=== PATIENT | female | born 1940 | race Caucasian/White ===

== ENCOUNTER 2017-02-18 16:41 | Inpatient (IN) ==
--- NOTE | 2017-02-18 17:19 | Emergency Department Note ---
Disposition Clinical Impression: Atrial fibrillation Qualifiers: Atrial fibrillation type: paroxysmal Qualified Code(s): I48.0 - Paroxysmal atrial fibrillation Disposition: Admitted As Inpatient Condition: Good Referrals: Danya Houser CNP [Primary Care Provider] - Time of Disposition: 20:47 General Adult HPI - General Stated complaint: irregular heart beat Time Seen by Provider: 02/18/17 16:50 Nursing Notes Reviewed: Yes Vital Signs Reviewed: Yes - History of Present Illness HPI Narrative: 1 week history of feeling like her heart is out of rhythm. Denies any shortness of breath or chest pain. No other symptoms. Onset (ago): day(s) Radiation: non-radiation Pain Severity: moderate Pain Scale: 0 Consistency: constant Improves with: nothing Worsens with: nothing Associated symptoms: Reports: shortness of breath - Related Data Home Medications Medication Instructions Recorded Confirmed Amlodipine Besylate 10 mg PO DAILY 03/17/16 02/18/17 Carvedilol [Coreg] 25 mg PO BID 03/17/16 02/18/17 Ergocalciferol (VITAMIN D2) 50,000 unit PO FR 03/17/16 02/18/17 [Vitamin D2 (50,000 UNIT)] Meclizine [Antivert] 12.5 mg PO DAILY PRN 03/17/16 02/18/17 Omeprazole [PriLOSEC] 20 mg PO DAILY 03/17/16 02/18/17 Albuterol Sulfate [Albuterol 2 puff IH Q4H PRN 04/18/16 02/18/17 Inhaler] Aspirin 81 mg PO DAILY 04/18/16 02/18/17 Calcitriol [Rocaltrol] 0.25 mcg PO DAILY 04/30/16 02/18/17 Warfarin [Coumadin] 5 mg PO ANNE 04/30/16 02/18/17 Diltiazem HCl [Diltiazem 24Hr Cd] 240 mg PO DAILY 02/18/17 02/18/17 Furosemide [Lasix] 20 mg PO DAILY 02/18/17 02/18/17 Lisinopril [Zestril] 40 mg PO DAILY 02/18/17 02/18/17 Tramadol HCl [Ultram] 50 mg PO Q8H PRN 02/18/17 02/18/17 Warfarin [Coumadin] 2.5 mg PO MOTUWETHFRSA 02/18/17 02/18/17 Previous Rx's Medication Instructions Recorded Magnesium Oxide [Magnesium] 400 mg PO BID #60 tablet 09/15/16 Allergies Allergy/AdvReac Type Severity Reaction Status Date / Time No Known Allergies Allergy Verified 08/15/16 12:03 All systems ED: reviewed and negative except as stated. Constitutional: Denies: fever, chills ENT ED: Denies: congestion Cardiovascular: Reports: palpitations (for 1 week). Denies: chest pain, syncope Respiratory: Reports: cough (for 1 year), sputum production (yellow). Denies: dyspnea Gastrointestinal: Denies: abdominal pain, nausea, vomiting, diarrhea Genitourinary: Denies: urgency, dysuria, frequency, hematuria Musculoskeletal: Denies: back pain Neurological: Denies: headache Past Medical History - Past Medical History Attestation: Yes The following information was validated with the patient. Medical history: Reports: COPD, GERD, hypertension, myocardial infarction, renal disease, TIA Psychiatric history: Reports: no psych history - Social History Smoking Status: Never smoker Smokeless Tobacco Status: No Alcohol use: Reports: none Drug use: Reports: none Physical Exam - General Limitations: no limitations General appearance: alert, in no apparent distress - Head Head exam: atraumatic, normocephalic, normal inspection - Eye Eye exam: Present: normal appearance, PERRL, EOMI. Absent: scleral icterus - ENT ENT exam: normal exam, normal oropharynx, mucous membranes moist - Neck Neck exam: Present: normal inspection, full ROM - Chest Chest inspection: Present: normal inspection - Respiratory Respiratory exam: Present: normal lung sounds bilaterally. Absent: respiratory distress - Cardiovascular Cardiovascular exam: Present: tachycardia, irregular rhythm, normal heart sounds - Abdominal Exam Abdominal exam: Present: soft, Non-Tender, normal bowel sounds. Absent: Palmer' s sign, Rovsing's sign, tenderness at McBurney's Point - Extremities Exam Extremities exam: Present: normal inspection, full ROM, normal capillary refill. Absent: pedal edema - Back Exam Back exam: Present: normal inspection. Absent: CVA tenderness (R), CVA tenderness (L) - Neurological Exam Neurological exam: Present: alert, oriented X3 - Psychiatric Psychiatric exam: Present: normal affect, normal mood - Skin Skin exam: Present: warm, dry, intact, normal color. Absent: rash, cyanosis Course Course Narrative: Well-appearing female patient presenting to emergency department complaining of feeling like her heart is beating out of rhythm. She does have a history of atrial fibrillation that was converted approximately a month ago while she was in the hospital. She is on medication for this as well. She states that for the past week she has noticed that her heart has been beating funny. She has seen her primary care physician and sent to the emergency department today. She denies any chest pain or shortness of breath. She does report a cough that is chronic and been present over a year. She states she has a yellowish sputum. She denies any fevers or chills. She denies any abdominal pain nausea vomiting or diarrhea. She appears well she is resting in bed. She is tachycardic. We will place her on Cardizem for rate control. She is on Coumadin chronically. We will admit to the hospital. - Consultations Consultation #1: Dr Mascorro accepted Pt in stable condition. Vital Signs Temperature 98.8 F 02/18/17 17:04 Pulse Rate 135 02/18/17 17:04 Respiratory Rate 16 02/18/17 17:04 Blood Pressure 141/95 02/18/17 17:04 O2 Sat by Pulse Oximetry 96 02/18/17 17:04 Temperature 98.8 F 02/18/17 17:04 Pulse Rate 88 02/18/17 19:48 Respiratory Rate 16 02/18/17 19:48 Blood Pressure 139/109 02/18/17 19:48 O2 Sat by Pulse Oximetry 93 02/18/17 19:48 Oxygen Delivery Oxygen Delivery Room Air Medical Decision Making - Lab Data Result diagrams: 02/18/17 20:11 02/18/17 20:11 Lab Results 02/18/17 02/18/17 02/18/17 Range/Units 20:11 20:11 20:11 WBC 9.9 (4.3-11.1) K/mcL RBC 3.65 L (3.82-4.97) M/mcL Hgb 11.3 L (11.5-15.4) g/dL Hct 34.1 L (35.3-44.9) % MCV 93.4 (83.0-100.0) fL MCH 31.0 (28.0-33.3) pg MCHC 33.1 (31.6-35.5) g/dL RDW 12.8 (11.5-14.5) % Plt Count 276 (140-400) K/mcL MPV 8.6 L (9.4-12.4) fL PT 24.1 H (9.4-12.1) Seconds INR 2.2 APTT 37.8 H (26.0-36.0) Seconds Sodium 140 (136-145) mEq/L Potassium 3.4 L (3.5-4.5) mEq/L Chloride 104 (98-109) mEq/L Carbon Dioxide 26 (19-29) mEq/L BUN 15 (7-20) mg/dL Creatinine 1.34 H (0.57-1.11) mg/dL Est GFR ( Amer) 46 L (> 60) Est GFR (Non-Af Amer) 38 L (> 60) BUN/Creatinine Ratio 11 (6-26) Glucose 92 (70-99) mg/dL Calculated Osmolality 290 (280-300) Calcium 9.1 (8.6-10.8) mg/dL Troponin I (0-0.03) ng/mL 02/18/17 Range/Units 20:11 WBC (4.3-11.1) K/mcL RBC (3.82-4.97) M/mcL Hgb (11.5-15.4) g/dL Hct (35.3-44.9) % MCV (83.0-100.0) fL MCH (28.0-33.3) pg MCHC (31.6-35.5) g/dL RDW (11.5-14.5) % Plt Count (140-400) K/mcL MPV (9.4-12.4) fL PT (9.4-12.1) Seconds INR APTT (26.0-36.0) Seconds Sodium (136-145) mEq/L Potassium (3.5-4.5) mEq/L Chloride (98-109) mEq/L Carbon Dioxide (19-29) mEq/L BUN (7-20) mg/dL Creatinine (0.57-1.11) mg/dL Est GFR ( Amer) (> 60) Est GFR (Non-Af Amer) (> 60) BUN/Creatinine Ratio (6-26) Glucose (70-99) mg/dL Calculated Osmolality (280-300) Calcium (8.6-10.8) mg/dL Troponin I 0.01 (0-0.03) ng/mL - EKG Data EKG #1 EKG attestation: Yes I reviewed and interpreted this EKG. EKG results narrative: A. fib with RVR at a rate of 146. QRS duration is 105. QT is 313. QTC is 397. No signs of acute ischemia. Attestation Statement - Attestation Attestation: I examined this patient and my medical decision-making was reviewed with the CTC OPERATOR/PA/Advanced Practice Nurse/Resident Physician. I agree with the documented findings, disposition and treatment plan as described except to the extent set forth below. 77-year-old female presents to the ED because of palpitations and dyspnea. She has had symptoms evolving for the past several days department is now intolerable. She does have a history of atrial fibrillation with paroxysmal events and a rapid ventricular response. Uncertain as to what she has been compliant with her medications. Denies chest pain. No fevers or chills. She has had nonproductive cough. No abdominal pain. Elderly female, very poor historian. Oropharynx clear. Extremities moist. Neck supple without JVD. Chest clear with no wheezes or rhonchi appreciated. Cardiac exam tachycardic, irregular. Chest wall nontender. Abdomen soft nondistended nontender extremities are warm and dry. EKG reveals atrial fibrillation with rapid ventricular response. IVs placed labs were obtained and x-rays obtained. Chest x-ray with minimal pulmonary edema. She was given IV Cardizem and started on Cardizem drip for rate control. She will be admitted for ongoing rate control and further evaluation. She does have a history of moderate to severe mitral regurgitation which may be contributing to her persistent / recurring A. fib. The high probability of a clinically significant, sudden or life threatening deterioration of the [cardiopulmonary] system(s) required my full and direct attention, intervention and personal management. The aggregate critical care time was [32] minutes. This time is in addition to time spent performing reported procedures but includes the following: [x] Data Review and interpretation [x] Patient assessment and monitoring of vital signs [x] Documentation [x] Medication orders and management
[2017-02-18] MEDS ORDERED: 0.9 % Sodium Chloride 500 ML IVC ONE (17:44)
[2017-02-18 20:19] LABS: Hematocrit 34.1 % (35.3-44.9); Hemoglobin 11.3 g/dL (11.5-15.4); Mean Corpuscular HGB Conc 33.1 g/dL (31.6-35.5); Mean Corpuscular Volume 93.4 fL (83.0-100.0); Mean Platelet Volume 8.6 fL (9.4-12.4); Platelet Count 276 K/mcL (140-400); Red Blood Count 3.65 M/mcL (3.82-4.97); Red Cell Distribution Width 12.8 % (11.5-14.5)
[2017-02-18 20:24] LABS: INR 2.2; Prothrombin Time 24.1 Seconds (9.4-12.1)
[2017-02-18 20:26] LABS: Activated Partial Thrombo Time 37.8 Seconds (26.0-36.0)
[2017-02-18 20:31] LABS: Calcium 9.1 mg/dL (8.6-10.8); Potassium 3.4 mEq/L (3.5-4.5)
[2017-02-18 20:53] LABS: Platelet Estimate Normal (Normal)
[2017-02-18 20:58] LABS: Monocytes # 0.3 K/mcL (0.0-1.3); Neutrophils # 7.1 K/mcL (1.6-8.9)
[2017-02-18 21:31] LABS: Magnesium 1.8 mg/dL (1.6-2.6)
[2017-02-18] MEDS ORDERED: Ondansetron 4 MG/2 ML VIAL IVP PRN (21:45)
[2017-02-18] MEDS ORDERED: Naloxone 0.4 MG/ML INJ IVP PRN (21:45)
[2017-02-18] MEDS ORDERED: traMADol 50 MG TABLET PO PRN (21:47)
--- NOTE | 2017-02-18 22:28 | Internal Med History&Physical ---
<Rai Oneal - Last Filed: 02/18/17 22:25> Date of Encounter: 02/18/17 Time of Encounter: 22:25 Assessment and Plan (1) Atrial fibrillation Current visit: Yes Status: Acute With rapid ventricular response. Heart rate was 135 on presentation. This is a chronic issue for the patient and is likely valvular given the patient's moderate to severe mitral regurgitation. We will check for underlying causes including checking a TSH, trending troponins. Patient is on a Cardizem drip which is controlled her heart rate well. Continue Cardizem drip for now with plan to transition back to her by mouth Cardizem tomorrow. Patient is currently anticoagulated on Coumadin with an INR of 2.2. We will continue this. Qualifiers: Atrial fibrillation type: paroxysmal Qualified Code(s): I48.0 - Paroxysmal atrial fibrillation (2) Left lower quadrant pain Current visit: Yes Status: Acute On physical exam the patient has left lower quadrant tenderness. She does not endorse any GI symptoms however there is concern for possible GI pathology that could exacerbate her atrial fibrillation including diverticulitis. We will obtain a CT abdomen and pelvis with oral contrast only and avoid IV contrast given the patient's kidney function. (3) Mitral regurgitation Current visit: No Status: Chronic Patient has moderate to severe mitral regurgitation on CONSTANTINO performed approximately a year ago. This is likely contributing to her atrial fibrillation. We will continue with current therapy as discussed above. Qualifiers: Cardiac valve disease etiology: etiology unspecified Qualified Code(s): I34.0 - Nonrheumatic mitral (valve) insufficiency (4) HTN (hypertension) Current visit: No Status: Acute Stable at this time. We will continue her home beta ofe. We will hold lisinopril at this time in the setting of chronic kidney disease and we will hold her amlodipine, not sure why she is on 2 calcium channel blockers. Qualifiers: Hypertension type: essential hypertension Qualified Code(s): I10 - Essential (primary) hypertension (5) DVT prophylaxis Current visit: Yes Status: Acute Therapeutic on Coumadin. Internal Medicine - H&P: HPI Chief complaint: Palpitations Admitted From: Home Plans for Post Hospital Care: Home History of present illness: Ms. Hauser is a 77 year old female with history of atrial fibrillation presents with palpitations. Patient is somewhat poor historian. Patient states that she was having chest pain and palpitations, these symptoms have been on and off for the last several months. They are particularly worse today so she came into the emergency department. At the time I examined the patient states her symptoms have resolved. Patient describes her pain as a tightness that does not radiate, is not associated with shortness of breath, nausea, vomiting. Patient also reports a chronic cough with yellow phlegm. She denies fever, chills. Past Med Surg Social Fam HX - Past Medical History Medical history: COPD, GERD, hypertension, myocardial infarction, renal disease , TIA Psychiatric history: no psych history - Past Surgical History Surgical History: other (CONSTANTINO) - Social History Smoking Status: Never smoker Smokeless Tobacco Status: No Alcohol use: none Drug use: none - Family History Grandfather Hx Family Cardiac Disorders: Yes Internal Medicine - H&P: Meds Amlodipine Besylate 10 mg PO DAILY 03/17/16 [History] Carvedilol [Coreg] 25 mg PO BID 03/17/16 [History] Ergocalciferol (VITAMIN D2) [Vitamin D2 (50,000 UNIT)] 50,000 unit PO FR [History] Meclizine [Antivert] 12.5 mg PO DAILY PRN 03/17/16 [History] Omeprazole [PriLOSEC] 20 mg PO DAILY 03/17/16 [History] Albuterol Sulfate [Albuterol Inhaler] 2 puff IH Q4H PRN 04/18/16 [History] Aspirin 81 mg PO DAILY 04/18/16 [History] Calcitriol [Rocaltrol] 0.25 mcg PO DAILY 04/30/16 [History] Warfarin [Coumadin] 5 mg PO ANNE 04/30/16 [History] Magnesium Oxide [Magnesium] 400 mg PO BID #60 tablet 09/15/16 [Rx] Diltiazem HCl [Diltiazem 24Hr Cd] 240 mg PO DAILY 02/18/17 [History] Furosemide [Lasix] 20 mg PO DAILY 02/18/17 [History] Lisinopril [Zestril] 40 mg PO DAILY 02/18/17 [History] Tramadol HCl [Ultram] 50 mg PO Q8H PRN 02/18/17 [History] Warfarin [Coumadin] 2.5 mg PO MOTUWETHFRSA 02/18/17 [History] Allergies No Known Allergies Allergy (Verified 08/15/16 12:03) All Systems PM: A 10-system review of systems was performed and is negative for pertinent findings except as documented above in the HPI. - Constitutional Constitutional: no chills, no fever(s) - EENT Eyes: no change in vision Nose, mouth and throat: no sinus pain, no sinus pressure - Cardiovascular Cardiovascular ROS IM: chest pain, palpitations, no dyspnea, no edema, no lightheadedness, no orthopnea - Respiratory Respiratory: cough, excessive phlegm production, no hemoptysis - Gastrointestinal Gastrointestinal: no abdominal pain, no diarrhea, no nausea, no vomiting - Genitourinary Genitourinary: no dysuria, no urinary frequency, no urinary urgency - Musculoskeletal Musculoskeletal ROS IM: no numbness, no tingling - Neurological Neurological ROS: no confusion, no numbness, no tingling - Constitutional Vitals: Temp Pulse Resp BP Pulse Ox 98.8 F 110 16 152/126 98 02/18/17 17:04 02/18/17 21:50 02/18/17 21:50 02/18/17 21:50 02/18/17 21:50 General appearance: Present: A&O X 3, pleasant, no acute distress - Head Head exam: Present: atraumatic, normal inspection, normocephalic - Eye Eye exam: Present: EOMI, PERRL - ENT ENT exam: Present: mucous membranes moist - Respiratory Respiratory exam: Present: CTAB. Absent: rales, rhonchi, wheezes - Cardiovascular Cardiovascular exam: Present: irregular rhythm. Absent: gallop, rubs, systolic murmur, tachycardia - GI/Abdominal GI/Abdominal exam: Present: normal bowel sounds, soft, tenderness (LLQ), no peritoneal signs. Absent: distended, firm - Extremities Exam Extremities exam: Absent: pedal edema, tenderness - Neurological Exam Neurological exam: Present: alert, CN II-XII intact, oriented X3, no focal deficits Internal Med - H&P Results - Labs CBC & Chem 7: 02/18/17 20:11 02/18/17 20:11 <Hayden Naqvi - Last Filed: 02/19/17 00:19> Date of Encounter: 02/19/17 - EENT Ears: no tinnitus Nose, mouth and throat: no nasal congestion, no sore throat - Cardiovascular Cardiovascular ROS IM: chest pain, no syncope - Genitourinary Genitourinary: no dysuria, no flank pain, no hematuria - Musculoskeletal Musculoskeletal ROS IM: no arthralgias, no back pain - Integumentary Integumentary IM: no rash, no jaundice - Neurological Neurological ROS: no focal weakness, no frequent falls - Endocrine Endocrine IM: no cold intolerance, no flushing, no heat intolerance - Hematologic/Lymphatic Hematologic/Lymphatic: easy bruising, no lymphadenopathy - Allergic/Immunologic Allergic/Immunologic: no GI upset with certain foods - Constitutional Vitals: Temp Pulse Resp BP Pulse Ox 98.4 F 88 16 138/96 96 02/18/17 23:42 02/18/17 23:42 02/18/17 23:42 02/18/17 23:42 02/18/17 23:42 General appearance: Present: A&O X 3, no acute distress - Head Head exam: Present: atraumatic, normal inspection - Expanded Head Exam Head exam expanded: Absent: abrasion, contusion, general tenderness - Eye Eye exam: Present: EOMI, PERRL Pupils: Present: normal accommodation - Neck Neck exam general surgery: Present: full ROM, supple. Absent: lymphadenopathy, tenderness - Expanded Neck Exam Neck exam: Absent: carotid bruit - Respiratory Respiratory exam: Present: CTAB - Cardiovascular Cardiovascular exam: Present: irregular rhythm, +S1, +S2 - GI/Abdominal GI/Abdominal exam: Present: normal bowel sounds, soft, tenderness. Absent: hepatomegaly, splenomegaly - Extremities Exam Extremities exam: Present: warm. Absent: calf tenderness, joint swelling - Back Exam Back exam: Present: normal inspection. Absent: CVA tenderness (L), CVA tenderness (R) - Neurological Exam Neurological exam: Present: no focal deficits - Skin Skin exam: Present: dry, warm. Absent: rash Internal Med - H&P Results - Labs CBC & Chem 7: 02/18/17 20:11 02/18/17 20:11 - EKG Data -: EKG Interpreted by Myself - EKG Data EKG comments: 02/19/17 00:15 Atrial fibrillation/RVR - Diagnostic Studies Chest x-ray Status: image reviewed by me (large heart; lungs relatively clear) - Attending Attestation I discussed the patient TRI DOMINGUEZH, ROS, lab data, and exam findings with Dr. Oneal. I then saw and examined patient independently as well. Pt currently rate controlled and she denies any complaints presently. She has no CP or SOB. She did mention some vague abdominal pain she had earlier, but that too has improved. I was unable to reproduce her abdominal pain on exam, but given her complaint of pain earlier and the exam findings by Dr. Oneal, I agree with CT of abdomen (no IV contrast). She may also warrant cardiology consult tomorrow if unable to convert her back to PO regimen. Other than my comments noted above and exam findings, I agree with Mayco Oneal's assessment and plan.
[2017-02-18] MEDS ORDERED: Ipratropium/Albuterol Neb 3 ML IH PRN (22:33)
[2017-02-18] MEDS: *HR* Warfarin 2.5 MG TABLET PO SCH (23:11)
[2017-02-18 23:15] LABS: Thyroid Stimulating Hormone 3.251 mcIU/mL (0.350-4.840)
[2017-02-19 04:52] LABS: INR 2.2; Prothrombin Time 24.8 Seconds (9.4-12.1)
[2017-02-19 05:01] LABS: Hematocrit 30.8 % (35.3-44.9); Mean Corpuscular HGB Conc 32.5 g/dL (31.6-35.5); Mean Corpuscular Hemoglobin 30.1 pg (28.0-33.3); Mean Corpuscular Volume 92.8 fL (83.0-100.0); Mean Platelet Volume 8.8 fL (9.4-12.4); Platelet Count 268 K/mcL (140-400); Red Blood Count 3.32 M/mcL (3.82-4.97); Red Cell Distribution Width 12.6 % (11.5-14.5)
[2017-02-19 05:40] LABS: Basophils # 0.2 K/mcL (0.0-0.2); Dohle Bodies Present (Not Present); Eosinophils # 0.2 K/mcL (0.0-0.6); Monocytes # 0.3 K/mcL (0.0-1.3); Neutrophils # 5.8 K/mcL (1.6-8.9); Toxic Granulation Present (Not Present)
[2017-02-19 05:41] LABS: Platelet Estimate Normal (Normal)
[2017-02-19 05:48] LABS: Calcium 8.8 mg/dL (8.6-10.8); Magnesium 2.1 mg/dL (1.6-2.6)
[2017-02-19 06:15] LABS: Potassium 4.6 mEq/L (3.5-4.5)
[2017-02-19] MEDS ORDERED: Lisinopril 20 MG TABLET PO SCH (09:00)
[2017-02-19] MEDS ORDERED: Diltiazem CD (24hr) 240 MG CAPSULE PO SCH ×2 (09:00)
[2017-02-19] MEDS: Aspirin 81 MG TAB.CHEW PO SCH (09:21)
[2017-02-19] MEDS: Magnesium Oxide 400 MG TABLET PO SCH ×2 (09:21→21:02)
[2017-02-19 11:08] LABS: Bilirubin,Urine Negative (Negative); Blood,Urine Small (Negative); Clarity,Urine Cloudy (Clear); Color,Urine Yellow (Yellow); Glucose,Urine (UA) Normal (Normal); Ketones,Urine Negative (Negative); Leukocyte Esterase,Urine Large (Negative); Nitrite,Urine Positive (Negative); Protein,Urine Negative (Neg-Trace); Specific Gravity,Urine 1.008 (1.010-1.025); Urobilinogen,Urine Normal (Normal)
[2017-02-19 11:10] LABS: Bacteria,Urine Many per hpf (None-Few); Hyaline Casts,Urine None Seen per lpf (None-Few); Squamous Epithelial Cell,Urine Moderate per lpf (None-Few); WBC,Urine TNTC per hpf (0-3)
--- NOTE | 2017-02-19 15:25 | Electrocardiograph Report ---
[place] [id number] Test Date: 2017-02-18 Pat Name: Alicja Hauser Department: 105 Room: [id number] Gender: F Public Health Inspector: MARY ELLEN : 1940 Requested By: Jaleesa Ferreira Order Number: [id number] Reading MD: Sd Little Measurements Intervals [place] Rate: 146 P: CT: 0 QRS: -18 QRSD: 105 T: 83 QT: 313 QTc: 397 Interpretive Statements ATRIAL FIBRILLATION WITH RAPID VENTRICULAR RESPONSE NONSPECIFIC ST \T\ T-WAVE ABNORMALITY ABNORMAL RHYTHM ECG Electronically Signed On 02-19-2017 15:23:39 EDT by Sd Little
[2017-02-19] MEDS ORDERED: *HR* Atropine Sulfate 1 MG/10 ML SYRINGE ONE (16:15)
[2017-02-19] MEDS ORDERED: 0.9 % Sodium Chloride 1,000 ML ONE (16:21)
[2017-02-19] MEDS ORDERED: *HR* Atropine Sulfate 1 MG/10 ML SYRINGE IVP STA (16:29)
[2017-02-19] MEDS ORDERED: Glucagon, Human Recombinant 12 MG in 0.9 % Sodium Chloride 238 ML IVC SCH (16:30)
[2017-02-19] MEDS ORDERED: Calcium Gluconate 2,000 MG in D5% in Water 100 ML IVPB ONE (16:32)
[2017-02-19] MEDS: 0.9 % Sodium Chloride 1,000 ML IVC SCH (17:41)
[2017-02-19] MEDS ORDERED: Warfarin perPT PO PRN (18:00)
[2017-02-19] MEDS: *HR* Warfarin 2.5 MG TABLET PO SCH (18:22)
[2017-02-19] MEDS ORDERED: *HR* Atropine Sulfate 1 MG/10 ML SYRINGE IVP ONE (19:07)
--- NOTE | 2017-02-19 19:43 | Event Note ---
Date of Encounter: 02/19/17 Time of Encounter: 16:00 Pt admitted earlier this AM with rapid atrial fibrillation. Heartrate decreased and drip stopped. She was given her PO meds. Approx 1PM she was noted to be somewhat bradycardic but asymptomatic. As day has progressed heartrate has decreased and now she is hypotensive. She denies chest pain at this time. Was dizzy getting up. Upon arrival heart rate is upper 30s and a fib. BP 77/40 Pt alert but somnolent. Heart irreg and dylon. Lungs clear. IV fluids started. EKG slow a fib As patient had been given beta ofe and CCB she was given 1mg of glucagon IV with some improvement. Heart rate again decreased and she became nauseated. At that time she was given 0.5mg Ativan with improvement. Her SBP is 98. Dx: unstable bradycardia Slow atrial fibrillation CCM 44min
[2017-02-20 04:21] LABS: INR 2.2; Prothrombin Time 24.3 Seconds (9.4-12.1)
--- NOTE | 2017-02-20 08:53 | Cardiology Consult Note ---
Date of Encounter: 02/20/17 Time of Encounter: 08:53 Assessment and Plan (1) Bradycardia on ECG Current Visit: Yes Status: Acute - Bradycardia followed a fib with rvr after being given home meds [id number] , Coreg 25mg BID. Pulse down to the 30s, was given 1mg glucagon, 0.5mg atropine x 2. Pt responded appropriately. - Hold home meds for now; restart home mes when HR S>100. (2) Atrial fibrillation Current Visit: Yes Status: Acute - troponins 0.01 - obtain EKG to fully assess rhythm. - repeat echo - if HR >100, restart home meds Diltiazem 240mg and Coreg 25mg BID. Qualifiers: Atrial fibrillation type: paroxysmal Qualified Code(s): I48.0 - Paroxysmal atrial fibrillation (3) Mitral regurgitation Current Visit: No Status: Chronic - Repeat echo - Continue coumadin. Qualifiers: Cardiac valve disease etiology: etiology unspecified Qualified Code(s): I34.0 - Nonrheumatic mitral (valve) insufficiency (4) Atrial fibrillation with RVR Current Visit: No Status: Acute Discussion w patient/family: The assessment and plan as outlined above was discussed with the patient and/or family members who expressed understanding and agreement. All questions were answered. Thank you for involving us in the care of your patient. Please call with any questions. History of Present Illness Consult date: 02/20/17 Requesting physician: Sumanth Mejia Consult reason: bradycardia Chief complaint: palpitations, a fib with rvr History of present illness: Ms. Hauser is a 77 year old female who was initially admitted on 02/18/2017 with atrial fibrillation with RVR heart rate in the 130s, chest pain, palpitations. Past medical history significant for COPD, GERD, hypertension, myocardial infarction, renal disease, TIA, chronic atrial fibrillation anticoagulated on Coumadin. Pt's set up mold technician is Dr. Gerardo. Patient had been placed on a Cardizem drip and admitted to the floor. Apparently, the Cardizem drip was stopped yesterday and patient was given her oral home medications including diltiazem 240 mg and Coreg 25 mg. She then had episode of bradycardia down into the 30s and was hypotensive with blood pressure 77/40. She was given a milligram of glucagon as well as 0.5 mg of atropine. They did see some heart rate improvement with this but then she did go bradycardic again and was given a second dose of atropine. Cardiology was consulted to evaluate need for possible pacemaker due to symptomatic bradycardia. 04/22/16- CONSTANTINO- mod to sev mitral regurgitation, mild to mod reduced LV systolic fxn. 04/22/16- LHC- EF 50%; minimal plaque disease- proximal LAD 20%, proximal circumflex 20%, 15% proximal RCA Past Med Surg Social Fam HX - Past Medical History Medical history: COPD, GERD, hypertension, myocardial infarction, renal disease , TIA Psychiatric history: no psych history - Past Surgical History Surgical History: other - Social History Smoking Status: Never smoker Smokeless Tobacco Status: No Alcohol use: none Drug use: none - Family History Grandfather Hx Family Cardiac Disorders: Yes Medications and Allergies Amlodipine Besylate 10 mg PO DAILY 03/17/16 [History] Carvedilol [Coreg] 25 mg PO BID 03/17/16 [History] Ergocalciferol (VITAMIN D2) [Vitamin D2 (50,000 UNIT)] 50,000 unit PO FR [History] Meclizine [Antivert] 12.5 mg PO DAILY PRN 03/17/16 [History] Omeprazole [PriLOSEC] 20 mg PO DAILY 03/17/16 [History] Albuterol Sulfate [Albuterol Inhaler] 2 puff IH Q4H PRN 04/18/16 [History] Aspirin 81 mg PO DAILY 04/18/16 [History] Calcitriol [Rocaltrol] 0.25 mcg PO DAILY 04/30/16 [History] Warfarin [Coumadin] 5 mg PO ANNE 04/30/16 [History] Magnesium Oxide [Magnesium] 400 mg PO BID #60 tablet 09/15/16 [Rx] Diltiazem HCl [Diltiazem 24Hr Cd] 240 mg PO DAILY 02/18/17 [History] Furosemide [Lasix] 20 mg PO DAILY 02/18/17 [History] Lisinopril [Zestril] 40 mg PO DAILY 02/18/17 [History] Tramadol HCl [Ultram] 50 mg PO Q8H PRN 02/18/17 [History] Warfarin [Coumadin] 2.5 mg PO [id number] 02/18/17 [History] Allergies No Known Allergies Allergy (Verified 08/15/16 12:03) All Systems Review: A 10-system review of systems was performed and is negative for pertinent findings except as documented above in the HPI. - Constitutional Constitutional: weakness - EENT Eyes: no loss of vision Nose, mouth and throat: no dysphagia - Cardiovascular Cardiovascular: as per HPI, irregular heart rhythm, palpitations - Respiratory Respiratory: no cough, no dyspnea - Gastrointestinal Gastrointestinal: no abdominal pain - Genitourinary Genitourinary: no dysuria - Musculoskeletal Musculoskeletal: no muscle weakness - Integumentary Integumentary: no rash - Neurological Neurological: no abnormal speech, no dizziness, no focal weakness Physical Examination General: Conversant, No Apparent Distress HEENT: Atraumatic Neck: No JVD Cardiac: Other (rate controlled a fib in 60s) Lungs: Normal Breath Sounds, No Wheeze, Rales, Rhonchi Neuro: Alert and responsive, No focal deficits noted Abdomen: Soft, Non-Tender Skin: No rashes noted on visualized skin Musculoskeletal: No Chest Wall Tenderness Extremities: No Edema Results 02/20/17 09:36 02/20/17 09:36 - Imaging and Cardiology Chest Xray: report reviewed (enlarged cardiac silhoutte with mild pulm vasc congestion, trace pleural effusions) Echo: pending Cardiac cath: report reviewed (04/22/16) - EKG Interpretation EKG results cardiology: no diagnostic ischemia (EKG- a fib with RVR) Consult Discharge Plan - Plan Referrals: Danya Houser, EXHIBITS COORDINATOR [Primary Care Provider] - 03/03/17 3:00 pm
[2017-02-20] MEDS: Aspirin 81 MG TAB.CHEW PO SCH (09:28)
[2017-02-20] MEDS: Magnesium Oxide 400 MG TABLET PO SCH ×2 (09:28→19:47)
[2017-02-20 09:56] LABS: Calcium 9.5 mg/dL (8.6-10.8); Magnesium 2.2 mg/dL (1.6-2.6); Potassium 4.7 mEq/L (3.5-4.5)
[2017-02-20 10:18] LABS: Hematocrit 33.5 % (35.3-44.9); Hemoglobin 10.9 g/dL (11.5-15.4); Mean Corpuscular HGB Conc 32.5 g/dL (31.6-35.5); Mean Corpuscular Hemoglobin 30.5 pg (28.0-33.3); Mean Corpuscular Volume 93.8 fL (83.0-100.0); Mean Platelet Volume 9.1 fL (9.4-12.4); Platelet Count 293 K/mcL (140-400); Red Blood Count 3.57 M/mcL (3.82-4.97); Red Cell Distribution Width 12.7 % (11.5-14.5)
[2017-02-20] MEDS: 0.9 % Sodium Chloride 1,000 ML IVC SCH (13:01)
--- NOTE | 2017-02-20 13:33 | Electrocardiograph Report ---
[place] [id number] Test Date: 2017-02-19 Pat Name: Alicja Hauser Department: 111 Room: 2NE20 Gender: F Wrapper Sheeter: RASHMI : 1940 Requested By: Nenita Espinoza Order Number: [id number] Reading MD: Sd Little Measurements Intervals [place] Rate: 37 P: TX: 0 QRS: -2 QRSD: 102 T: -88 QT: 577 QTc: 490 Interpretive Statements SUPRAVENTRICULAR BRADYCARDIA ST DEVIATION AND MODERATE T-WAVE ABNORMALITY, CONSIDER ANTERIOR ISCHEMIA ST DEVIATION AND MODERATE T-WAVE ABNORMALITY, CONSIDER INFERIOR ISCHEMIA Electronically Signed On 02-20-2017 13:31:51 EDT by Sd Little
--- NOTE | 2017-02-20 16:20 | Electrocardiograph Report ---
[place] [address] Test Date: 2017-02-20 Pat Name: Alicja Hauser Department: 111 Room: 2NE20 Gender: F Timber Killer: RASHMI : 1940 Requested By: Sumanth Mejia Order Number: [id number] Reading MD: Danya Little Measurements Intervals [place] Rate: 80 P: IA: 0 QRS: 31 QRSD: 115 T: 89 QT: 334 QTc: 370 Interpretive Statements ATRIAL FIBRILLATION WITH ABERRANT CONDUCTION OR VENTRICULAR PREMATURE COMPLEXES MODERATE INTRAVENTRICULAR CONDUCTION DELAY NONSPECIFIC T-WAVE ABNORMALITY ABNORMAL RHYTHM ECG Electronically Signed On 02-20-2017 16:19:04 EDT by Danya Little
--- NOTE | 2017-02-20 16:28 | Internal Med Progress Note ---
Date of Encounter: 02/20/17 Time of Encounter: 08:30 - Assessment and plan (1) Atrial fibrillation Current Visit: Yes Status: Acute Assessment and plan: Current on no rate control agents due to bradycardia. Will restart when greater than 100 sustained. Qualifiers: Atrial fibrillation type: persistent Qualified Code(s): I48.1 - Persistent atrial fibrillation (2) Bradycardia Current Visit: Yes Status: Resolved Assessment and plan: Pt with unstable bradycardia yesterday - atrial fibrillation. On no meds now. (3) HTN (hypertension) Current Visit: Yes Status: Chronic Assessment and plan: BP controlled at this time. Qualifiers: Hypertension type: essential hypertension Qualified Code(s): I10 - Essential (primary) hypertension (4) CKD (chronic kidney disease) stage 3, GFR 30-59 ml/min Current Visit: Yes Status: Chronic Assessment and plan: Monitor renal function. (5) UTI (urinary tract infection) Current Visit: Yes Status: Acute Assessment and plan: Final culture pending. On IV abx. Qualifiers: Urinary tract infection type: acute cystitis Hematuria presence: without hematuria Qualified Code(s): N30.00 - Acute cystitis without hematuria (6) Mitral regurgitation Current Visit: Yes Status: Chronic Assessment and plan: Supportive care. Qualifiers: Cardiac valve disease etiology: nonrheumatic Qualified Code(s): I34.0 - Nonrheumatic mitral (valve) insufficiency - Subjective Interval history: Ms. Hauser is currently admitted for rapid atrial fibrillation complicated by severe bradycardia and hypotension. She is moderate to high risk due to potential for worsening cardiac status. Ms. Hauser is eating breakfast. She had issues with severe bradycardia yesterday afternoon. She was hypotensive and required Atropine for treatment. Today her heart rate is higher but she has had no medications. She has reportedly had a few episodes of heart rate greater than 100. Denies CP. No fever or chills. On IV abx for UTI. - Constitutional Vitals: Temp Pulse Resp BP Pulse Ox 97.8 F 78 15 121/74 99 02/20/17 15:11 02/20/17 15:11 02/20/17 15:11 02/20/17 15:11 02/20/17 15:11 General appearance: Present: A&O X 3, pleasant, answers questions appropriately - Head Head exam: Present: normocephalic - Eye Eye exam: Present: conjunctival injection - ENT ENT exam: Present: mucous membranes dry - Respiratory Respiratory exam: Present: CTAB. Absent: rales, wheezes - Cardiovascular Cardiovascular exam: Present: irregular rhythm. Absent: bradycardia, tachycardia - GI/Abdominal GI/Abdominal exam: Present: soft. Absent: tenderness - Extremities Exam Extremities exam: Present: warm. Absent: pedal edema - Neurological Exam Neurological exam: Present: alert, oriented X3 - Psychiatric Psychiatric exam: Present: normal affect - Skin Skin exam: Present: warm. Absent: rash Internal Medicine: Result - Labs CBC & Chem 7: 02/20/17 09:36 02/20/17 09:36 Labs: Short CBC 02/20/17 Range/Units 09:36 WBC 10.6 (4.3-11.1) K/mcL Hgb 10.9 L (11.5-15.4) g/dL Hct 33.5 L (35.3-44.9) % Plt Count 293 (140-400) K/mcL BMP 02/20/17 09:36 Sodium 136 Potassium 4.7 H Chloride 105 Carbon Dioxide 23 BUN 18 Creatinine 1.44 H Glucose 113 H Calcium 9.5 - ABG Interpretation ABG results: PT/INR, D-dimer PT 24.3 Seconds (9.4-12.1) H 02/20/17 03:28 - VTE Reasons for not Prescribing Prophylaxis: Not indicated-Anticoagulated or INR therapeutic Consult Discharge Plan - Plan Referrals: Danya Houser CNP [Primary Care Provider] - 03/03/17 3:00 pm
--- NOTE | 2017-02-20 17:08 | ECHO - Doppler Report ---
Echocardiogram Name: Alicja Hauser Date of Study: 02/20/2017 Date: 1940 Ht: 63.0 in Medical Record#: [id number] Age: 77 Wt: 136.0 lb Gender: Female BSA: 1.64 Order #: [id number] Location: [facility] Room #: 2NE20 Reading Physician: Giorgi Joseph DO, SHAKIRA ROMANO Communications Clerk: Nikole Singleton Ordering Physician: Nenita Espinoza DO Primary Physician: Danya Houser CNP Indications: Afib with history of MR Impressions: LVEF 45%. Mild global left ventricular systolic dysfunction. Indeterminate diastolic function. Normal right ventricular structure and function. Severely dilated left atrium with persistent bowing of the interatrial septum from left to right. Mild-moderate mitral regurgitation, which was not well evaluated and could be underestimated. Mild tricuspid regurgitation. Severe pulmonary hypertension. Estimated RVSP is 57 mmHg. Left Ventricular Wall Motion: Rest Echo Findings The apex, apical inferior, mid inferior, basal inferior, apical anterior, mid anterior, basal anterior, apical septal, mid inferior septal, basal inferior septal, apical lateral, mid anterior lateral, basal anterior lateral, mid anterior septal, mid inferior lateral, basal anterior septal and basal inferior lateral solis were hypokinetic. Findings: Study Quality * Technically sub-optimal due to poor echocardiographic windows. ECG Findings * Atrial fibrillation. Left Ventricle * LVEF 45%. * Normal LV chamber size. * Mild global left ventricular systolic dysfunction. * Indeterminate diastolic function. Right Ventricle * Normal right ventricular structure and function. Left Atrium * Severely dilated left atrium with persistent bowing of the interatrial septum from left to right. Right Atrium * Mildly dilated right atrium. Interatrial Septum * No evidence of PFO by color Doppler. Aortic Valve * Trileaflet aortic valve. * Trace aortic regurgitation. * No aortic stenosis. Mitral Valve * Mildly thickened mitral valve leaflets. * Mild-moderate mitral regurgitation, which was not well evaluated and could be underestimated. * No mitral stenosis. Tricuspid Valve * Normal tricuspid valve structure. * Mild tricuspid regurgitation. * Severe pulmonary hypertension. * Estimated RVSP is 57 mmHg. Pulmonic Valve * Pulmonic valve not well visualized. Aorta * Normally sized aortic root. Pericardium * The pericardium appears normal. IVC * Normal IVC dimensions and inspiratory collapse. Pulmonary Artery * Normal visualized portions of the main pulmonary artery. History Hypertension Hypercholesteremia Family History of CAD History of CAD/PTCA 03/02/2014 a Previous Echo was performed. Measurements: BP: 127/ 81 2D Normal Values RVIDd: 2.70 cm <2.7 cm IVSd: 1.20 cm 0.6 - 1.0 cm LVIDd: 5.10 cm 3.7 - 5.6 cm LVPWd: 1.00 cm 0.6 - 1.1 cm LVIDs: 4.30 cm 1.5 - 3.6 cm AO: 3.20 cm < 4.0 cm LA: 3.90 cm 2.0 - 4.0cm %FS: 15.70 cm >25 % LA volume: 116 Mitral Valve Peak E:1.18 m/sec Peak E' Lat Farhan:9.16 cm/s Peak E' Med Farhan:6.04 cm/s E/E' Lat Ratio:12.9 E/E' Med Ratio:19.5 Tricuspid Valve TV Regurg Peak Grad: 52.00mmHg TV Regurg Peak Farhan: 3.61m/sec Updated by Giorgi Joseph DO, FACAnisha, ARIA ROSENBERG on 02/20/2017 5:04:30 PM electronically signed on 02/20/2017 5:05:01 PM with status of Final Wall Motion Damon: 1=Normal, 2=Hypokinesis, 3=Akinesis, 4=Dyskinesis, 5=Aneurysmal, 6=Hyperkinetic, X=Not Visualized (Blank)=Missing
[2017-02-20] MEDS: *HR* Warfarin 2.5 MG TABLET PO SCH (18:21)
[2017-02-21 04:42] LABS: Hematocrit 32.3 % (35.3-44.9); Hemoglobin 10.7 g/dL (11.5-15.4); Mean Corpuscular HGB Conc 33.1 g/dL (31.6-35.5); Mean Corpuscular Hemoglobin 30.8 pg (28.0-33.3); Mean Corpuscular Volume 93.1 fL (83.0-100.0); Mean Platelet Volume 9.1 fL (9.4-12.4); Platelet Count 287 K/mcL (140-400); Red Blood Count 3.47 M/mcL (3.82-4.97); Red Cell Distribution Width 12.6 % (11.5-14.5)
[2017-02-21 04:48] LABS: INR 2.2; Prothrombin Time 24.4 Seconds (9.4-12.1)
[2017-02-21 05:00] LABS: Potassium 4.2 mEq/L (3.5-4.5)
[2017-02-21] MEDS: Magnesium Oxide 400 MG TABLET PO SCH ×2 (08:39→20:48)
[2017-02-21] MEDS: Aspirin 81 MG TAB.CHEW PO SCH (08:39)
--- NOTE | 2017-02-21 09:55 | Internal Med Progress Note ---
Date of Encounter: 02/21/17 Time of Encounter: 09:00 - Assessment and plan (1) Atrial fibrillation Current Visit: Yes Status: Acute Assessment and plan: Heart rate now higher and has been over 100 more often. Due to the previous issues will restart Coreg today at a lower dose and plan to readd Cardizem if persists later in day. Pt needs monitored due to her recent episodes of unstable bradycardia. Qualifiers: Atrial fibrillation type: persistent Qualified Code(s): I48.1 - Persistent atrial fibrillation (2) Bradycardia Current Visit: Yes Status: Resolved Assessment and plan: Currently has had some rapid atrial fibrillation episodes (100-120) (3) Anemia Current Visit: Yes Status: Acute Assessment and plan: She has normocytic anemia. Most likely chronic disease but review of prior H/H shows varies from 11-13. She is on coumadin and has no overt bleeding. Will need followed up as outpatient. Qualifiers: Anemia type: other cause Other causes of anemia: chronic disease, other Qualified Code(s): D63.8 - Anemia in other chronic diseases classified elsewhere (4) UTI (urinary tract infection) Current Visit: Yes Status: Acute Assessment and plan: Final culture E. coli sensitive to Ceftriaxone but resistant to Levaquin. Anticipate d/c on PO Keflex if needed. Qualifiers: Urinary tract infection type: acute cystitis Hematuria presence: without hematuria Qualified Code(s): N30.00 - Acute cystitis without hematuria (5) HTN (hypertension) Current Visit: Yes Status: Chronic Assessment and plan: BP has been increasing off her meds. Will restart today and follow BP Qualifiers: Hypertension type: essential hypertension Qualified Code(s): I10 - Essential (primary) hypertension (6) CKD (chronic kidney disease) stage 3, GFR 30-59 ml/min Current Visit: Yes Status: Chronic Assessment and plan: Monitor renal function. (7) Mitral regurgitation Current Visit: Yes Status: Chronic Assessment and plan: Supportive care. Qualifiers: Cardiac valve disease etiology: nonrheumatic Qualified Code(s): I34.0 - Nonrheumatic mitral (valve) insufficiency - Subjective Interval history: Ms. Hauser is currently admitted for rapid atrial fibrillation complicated by severe bradycardia and hypotension. She is moderate to high risk due to potential for worsening cardiac status. Ms. Hauser is resting comfortably at this time. She slept OK last night. No fever or chills. Still with urinary frequency. Heart rate has been over 100 on more occasions. She also has been having PVCs and her blood pressure has been elevated. No GI symptoms. No CP or SOB. - Constitutional Vitals: Temp Pulse Resp BP Pulse Ox 97.6 F 97 18 148/93 94 02/21/17 07:36 02/21/17 07:36 02/21/17 07:36 02/21/17 07:36 02/21/17 07:36 General appearance: Present: A&O X 3, pleasant, answers questions appropriately - Head Head exam: Present: normocephalic - Eye Eye exam: Present: conjuntiva pink - ENT ENT exam: Present: mucous membranes moist - Respiratory Respiratory exam: Present: decreased breath sounds, CTAB. Absent: rales, rhonchi, wheezes - Cardiovascular Cardiovascular exam: Present: irregular rhythm, tachycardia. Absent: +S4 - GI/Abdominal GI/Abdominal exam: Present: normal bowel sounds, soft. Absent: tenderness - Extremities Exam Extremities exam: Present: warm. Absent: pedal edema, tenderness - Neurological Exam Neurological exam: Present: alert, oriented X3 - Psychiatric Psychiatric exam: Present: normal affect, normal mood - Skin Skin exam: Present: dry, warm. Absent: rash Internal Medicine: Result - Labs CBC & Chem 7: 02/21/17 03:48 02/21/17 03:48 Labs: Short CBC 02/20/17 02/21/17 Range/Units 09:36 03:48 WBC 10.6 9.4 (4.3-11.1) K/mcL Hgb 10.9 L 10.7 L (11.5-15.4) g/dL Hct 33.5 L 32.3 L (35.3-44.9) % Plt Count 293 287 (140-400) K/mcL BMP 02/20/17 02/21/17 09:36 03:48 Sodium 136 138 Potassium 4.7 H 4.2 Chloride 105 104 Carbon Dioxide 23 27 BUN 18 22 H Creatinine 1.44 H 1.36 H Glucose 113 H 93 Calcium 9.5 9.0 - ABG Interpretation ABG results: PT/INR, D-dimer PT 24.4 Seconds (9.4-12.1) H 02/21/17 03:48 - Impressions Impressions Chest X-Ray 02/20/17 09:22 IMPRESSION: 1. Chronic retrocardiac opacities corresponding to left lower lobe scarring and bronchiectasis as noted on prior CT examinations. Superimposed infectious process is not entirely excluded. D/ / Tanner Ortiz MD / Tanner Ortiz MD Interpreting Provider: Tanner Ortiz MD - VTE Reasons for not Prescribing Prophylaxis: Not indicated-Anticoagulated or INR therapeutic Consult Discharge Plan - Plan Referrals: Danya Houser CNP [Primary Care Provider] - 03/03/17 3:00 pm
--- NOTE | 2017-02-21 14:40 | Cardiology Progress Note ---
Date of Encounter: 02/21/17 Time of Encounter: 14:30 Assessment and Plan (1) Atrial fibrillation Current Visit: Yes Status: Acute Hx of PAF. Presented with afib with RVR, while on cardizem gtt became bradycardiac with HR in the 30's. 12 hour tele: avg QL=332 afib. Min=69, no pause. Coreg resumed this AM, cardizem q6H to be resumed this evening. Recommend rate control. Will continue to follow and monitor HR. Anticoagulated on Coumadin, INR followed by [facility]. Qualifiers: Atrial fibrillation type: paroxysmal Qualified Code(s): I48.0 - Paroxysmal atrial fibrillation (2) Mitral regurgitation Current Visit: Yes Status: Chronic Mild-moderate MR per TTE. Appears euvolemic upon exam. Will continue to follow/monitor in the outpatient setting. Qualifiers: Cardiac valve disease etiology: nonrheumatic Qualified Code(s): I34.0 - Nonrheumatic mitral (valve) insufficiency (3) Systolic dysfunction Current Visit: Yes Status: Chronic Non-ischemic cardiomyopathy. EF improved, 45% compared to prior study (35-40%). Appears euvolemic upon exam. Continue CV medications including betablocker. No ACEi/ARB due to CKD. Discussion w patient/family: The assessment and plan as outlined above was discussed with the patient and/or family members who expressed understanding and agreement. All questions were answered. Thank you for involving us in the care of your patient. Please call with any questions. Subjective Principal diagnosis: Afib with RVR Interval history: Seen and examined. Patient states she feels well today--no complaints including chest pain or discomfort, dyspnea, palpitations, syncope, or dizziness. Objective Vital Signs, Last 4 Hours Temp Pulse Resp BP Pulse Ox 02/21/17 12:50 98.2 F 91 16 137/92 94 General: Conversant HEENT: Atraumatic, Normocephaly Cardiac: Other (irregulary irregular) Lungs: Normal Breath Sounds Neuro: Alert and responsive Abdomen: Soft Skin: No rashes noted on visualized skin Musculoskeletal: No Chest Wall Tenderness Extremities: No Edema, Normal Pulses Results 02/21/17 03:48 02/21/17 03:48 Lab Results 02/21/17 02/21/17 02/21/17 03:48 03:48 03:48 WBC 9.4 Hgb 10.7 L Hct 32.3 L Plt Count 287 INR 2.2 Sodium 138 Potassium 4.2 Chloride 104 Carbon Dioxide 27 BUN 22 H Creatinine 1.36 H Glucose 93 Calcium 9.0 Active Medications Albuterol/Ipratropium (Duoneb) 3 ml IH [id number] PRN; Protocol PRN Reason: Shortness Of Breath/Wheezing Stop: 08/20/17 22:34 Aspirin (Aspirin) 81 mg PO DAILY [facility] Stop: 08/21/17 09:01 Last Admin: 02/21/17 08:39 Dose: 81 mg Calcitriol (Rocaltrol) 0.25 mcg PO DAILY [facility] Stop: 08/21/17 09:01 Last Admin: 02/21/17 08:39 Dose: 0.25 mcg Carvedilol (Coreg) 12.5 mg PO BIDWM [facility]UNG PRN Reason: Protocol Stop: 08/23/17 08:59 Last Admin: 02/21/17 10:35 Dose: 12.5 mg Diltiazem HCl (Cardizem) 30 mg PO Q6HR [facility] Stop: 08/23/17 18:01 Ceftriaxone Sodium 1,000 mg/ (Dextrose) 100 mls @ 200 mls/hr IVPB Q24H [facility] Stop: 08/21/17 12:01 Last Admin: 02/21/17 12:05 Dose: 200 mls/hr Magnesium Oxide (Mag-Ox) 400 mg PO BID [facility]G PRN Reason: Protocol Stop: 08/21/17 09:01 Last Admin: 02/21/17 08:39 Dose: 400 mg Naloxone HCl (Narcan) 0.4 mg IVP Q2MIN PRN PRN Reason: Opioid Reversal Stop: 08/20/17 21:46 Omeprazole (Prilosec) 20 mg PO DAILY [facility]UNG PRN Reason: Protocol Stop: 08/21/17 09:01 Last Admin: 02/21/17 08:39 Dose: 20 mg Ondansetron HCl (Zofran) 4 mg IVP Q8HR PRN PRN Reason: Nausea And Vomiting Stop: 08/20/17 21:46 Tramadol HCl (Ultram) 50 mg PO Q8H PRN PRN Reason: Pain Stop: 08/20/17 21:48 Last Admin: 02/19/17 09:30 Dose: 50 mg Warfarin Sodium (Coumadin) 2.5 mg PO [id number] [facility] Stop: 08/20/17 22:01 Last Admin: 02/20/17 18:21 Dose: 2.5 mg Warfarin Sodium (Coumadin) 5 mg PO ANNE [facility] Stop: 08/24/17 21:48 Warfarin Sodium (Coumadin Perpt) 1 each PO DAILY@1800 PRN PRN Reason: SEE COMMENTS Stop: 08/21/17 18:01 - Imaging and Cardiology Echo: report reviewed Cardiac cath: report reviewed Other Results: 12 hour tele: avg YW=420, min=69. No pause. - EKG Interpretation EKG results cardiology: personally reviewed - VTE Reasons for not Prescribing Prophylaxis: Not indicated-Anticoagulated or INR therapeutic Consult Discharge Plan - Plan Referrals: Danya Houser WEATHERIZATION OPERATIONS MANAGER [Primary Care Provider] - 03/03/17 3:00 pm
[2017-02-21] MEDS: *HR* Warfarin 2.5 MG TABLET PO SCH (17:08)
[2017-02-22 03:21] LABS: INR 1.9; Prothrombin Time 20.8 Seconds (9.4-12.1)
[2017-02-22 03:22] LABS: Hematocrit 33.2 % (35.3-44.9); Hemoglobin 11.1 g/dL (11.5-15.4); Mean Corpuscular HGB Conc 33.4 g/dL (31.6-35.5); Mean Corpuscular Hemoglobin 30.6 pg (28.0-33.3); Mean Corpuscular Volume 91.5 fL (83.0-100.0); Platelet Count 290 K/mcL (140-400); Red Blood Count 3.63 M/mcL (3.82-4.97); Red Cell Distribution Width 12.6 % (11.5-14.5)
[2017-02-22 03:29] LABS: Calcium 9.2 mg/dL (8.6-10.8); Magnesium 1.7 mg/dL (1.6-2.6); Potassium 3.8 mEq/L (3.5-4.5)
[2017-02-22] MEDS: Aspirin 81 MG TAB.CHEW PO SCH (09:44)
[2017-02-22] MEDS: Magnesium Oxide 400 MG TABLET PO SCH ×2 (09:45→20:23)
--- NOTE | 2017-02-22 11:09 | Cardiology Progress Note ---
Date of Encounter: 02/22/17 Time of Encounter: 11:00 Assessment and Plan (1) Atrial fibrillation Current Visit: Yes Status: Acute Hx of PAF. Presented with afib with RVR, while on cardizem gtt became bradycardiac with HR in the 30's. 12 hour tele: avg HR=99 afib. Min=67, no pause. HR 80's during exam. Continue coreg; will change cardizem to long-acting, first dose this afternoon. Recommend rate control. Anticoagulated on Coumadin, INR followed by ACMS; denies abnormal or unusual bleeding. Follow-up in the outpatient setting; will coordinate appt in 3-4 weeks. Qualifiers: Atrial fibrillation type: paroxysmal Qualified Code(s): I48.0 - Paroxysmal atrial fibrillation (2) Mitral regurgitation Current Visit: Yes Status: Chronic Mild-moderate MR per TTE. Appears euvolemic upon exam. Will continue to follow/monitor in the outpatient setting. Qualifiers: Cardiac valve disease etiology: nonrheumatic Qualified Code(s): I34.0 - Nonrheumatic mitral (valve) insufficiency (3) Systolic dysfunction Current Visit: Yes Status: Chronic Non-ischemic cardiomyopathy. EF improved, 45% compared to prior study (35-40%). Appears euvolemic upon exam. Continue CV medications including betablocker. No ACEi/ARB due to CKD. Discussion w patient/family: The assessment and plan as outlined above was discussed with the patient and/or family members who expressed understanding and agreement. All questions were answered. Thank you for involving us in the care of your patient. Please call with any questions. The patient was discussed and reviewed with Dr. Sd Little; Cardiology will sign-off. Subjective Principal diagnosis: Afib with RVR Interval history: Seen and examined. Patient states she feels well today--no complaints including chest pain or discomfort, dyspnea, palpitations, syncope, or dizziness. Objective General: Conversant, No Apparent Distress HEENT: Atraumatic, Normocephaly, Mucus Membranes Moist Cardiac: Other (irregularly irregular) Lungs: Normal Breath Sounds Neuro: Alert and responsive Abdomen: Soft Skin: No rashes noted on visualized skin Musculoskeletal: No Chest Wall Tenderness Extremities: No Edema, Normal Pulses Results 02/22/17 03:01 02/22/17 03:01 Lab Results 02/22/17 02/22/1717 03:01 03:01 03:01 WBC 9.7 Hgb 11.1 L Hct 33.2 L Plt Count 290 INR 1.9 Sodium 137 Potassium 3.8 Chloride 101 Carbon Dioxide 27 BUN 15 Creatinine 1.11 Glucose 96 Calcium 9.2 Magnesium 1.7 Active Medications Albuterol/Ipratropium (Duoneb) 3 ml IH [id number] PRN; Protocol PRN Reason: Shortness Of Breath/Wheezing Stop: 08/20/17 22:34 Aspirin (Aspirin) 81 mg PO DAILY [facility] Stop: 08/21/17 09:01 Last Admin: 02/22/17 09:44 Dose: 81 mg Calcitriol (Rocaltrol) 0.25 mcg PO DAILY [facility] Stop: 08/21/17 09:01 Last Admin: 02/22/17 09:45 Dose: 0.25 mcg Carvedilol (Coreg) 25 mg PO BIDWM [facility] PRN Reason: Protocol Stop: 08/23/17 17:15 Last Admin: 02/22/17 09:45 Dose: 25 mg Diltiazem HCl (Cardizem Cd) 240 mg PO DAILY [facility] Stop: 08/24/17 14:01 Ceftriaxone Sodium 1,000 mg/ (Dextrose) 100 mls @ 200 mls/hr IVPB Q24H [facility] Stop: 08/21/17 12:01 Last Admin: 02/21/17 12:05 Dose: 200 mls/hr Magnesium Oxide (Mag-Ox) 400 mg PO BID [facility] PRN Reason: Protocol Stop: 08/21/17 09:01 Last Admin: 02/22/17 09:45 Dose: 400 mg Naloxone HCl (Narcan) 0.4 mg IVP Q2MIN PRN PRN Reason: Opioid Reversal Stop: 08/20/17 21:46 Omeprazole (Prilosec) 20 mg PO DAILY [facility] PRN Reason: Protocol Stop: 08/21/17 09:01 Last Admin: 02/22/17 09:45 Dose: 20 mg Ondansetron HCl (Zofran) 4 mg IVP Q8HR PRN PRN Reason: Nausea And Vomiting Stop: 08/20/17 21:46 Tramadol HCl (Ultram) 50 mg PO Q8H PRN PRN Reason: Pain Stop: 08/20/17 21:48 Last Admin: 02/19/17 09:30 Dose: 50 mg Warfarin Sodium (Coumadin) 2.5 mg PO [id number]@1800 [facility] Stop: 08/20/17 22:01 Last Admin: 02/21/17 17:08 Dose: 2.5 mg Warfarin Sodium (Coumadin) 5 mg PO ANNE [facility] Stop: 08/24/17 21:48 Warfarin Sodium (Coumadin Perpt) 1 each PO DAILY@1800 PRN PRN Reason: SEE COMMENTS Stop: 08/21/17 18:01 - Imaging and Cardiology Echo: report reviewed Cardiac cath: report reviewed Other Results: 12 hour tele: avg HR=99, HR 80's upon exam. - EKG Interpretation EKG results cardiology: personally reviewed - VTE Reasons for not Prescribing Prophylaxis: Not indicated-Anticoagulated or INR therapeutic Consult Discharge Plan - Plan Referrals: Danya Houser EXTERMINATOR HELPER [Primary Care Provider] - 03/03/17 3:00 pm
[2017-02-22] MEDS ORDERED: Diltiazem CD (24hr) 240 MG CAPSULE PO SCH (14:00)
--- NOTE | 2017-02-22 14:26 | Internal Med Progress Note ---
Date of Encounter: 02/22/17 Time of Encounter: 09:00 - Assessment and plan (1) Atrial fibrillation Current Visit: Yes Status: Acute Assessment and plan: Restarted on Coreg and short acting Cardizem yesterday. Rate still high. Will increase Cardizem dose. If tolerates may be able to go home later today. Qualifiers: Atrial fibrillation type: persistent Qualified Code(s): I48.1 - Persistent atrial fibrillation (2) Anemia Current Visit: Yes Status: Acute Assessment and plan: She has normocytic anemia. Most likely chronic disease but review of prior H/H shows varies from 11-13. Monitoring. Qualifiers: Anemia type: other cause Other causes of anemia: chronic disease, other Qualified Code(s): D63.8 - Anemia in other chronic diseases classified elsewhere (3) UTI (urinary tract infection) Current Visit: Yes Status: Acute Assessment and plan: Final culture E. coli sensitive to Ceftriaxone but resistant to Levaquin. Anticipate d/c on PO Keflex if needed. Today is day 4 of Ceftriaxone. Qualifiers: Urinary tract infection type: acute cystitis Hematuria presence: without hematuria Qualified Code(s): N30.00 - Acute cystitis without hematuria (4) HTN (hypertension) Current Visit: Yes Status: Chronic Assessment and plan: High this AM but improved with meds. Qualifiers: Hypertension type: essential hypertension Qualified Code(s): I10 - Essential (primary) hypertension (5) CKD (chronic kidney disease) stage 3, GFR 30-59 ml/min Current Visit: Yes Status: Chronic Assessment and plan: Monitor renal function. (6) Mitral regurgitation Current Visit: Yes Status: Chronic Assessment and plan: Supportive care. Qualifiers: Cardiac valve disease etiology: nonrheumatic Qualified Code(s): I34.0 - Nonrheumatic mitral (valve) insufficiency - Subjective Interval history: Ms. Hauser is currently admitted for rapid atrial fibrillation complicated by severe bradycardia and hypotension. She is moderate to high risk due to potential for worsening cardiac status. Ms. Hauser feels OK. Her heart rate is about 120 while eating. She has not received her medications yet. No cough. No fever or chills. - Constitutional Vitals: Temp Pulse Resp BP Pulse Ox 97.8 F 97 17 137/94 92 02/22/17 07:00 02/22/17 07:00 02/22/17 07:00 02/22/17 07:00 02/22/17 07:00 General appearance: Present: A&O X 3, pleasant, answers questions appropriately - Head Head exam: Present: normocephalic - Eye Eye exam: Present: conjuntiva pink - ENT ENT exam: Present: mucous membranes moist - Respiratory Respiratory exam: Present: CTAB. Absent: rales, rhonchi, wheezes - Cardiovascular Cardiovascular exam: Present: irregular rhythm, systolic murmur, tachycardia - GI/Abdominal GI/Abdominal exam: Present: soft. Absent: tenderness - Extremities Exam Extremities exam: Present: warm. Absent: pedal edema, tenderness - Neurological Exam Neurological exam: Present: alert, oriented X3, no focal deficits - Skin Skin exam: Present: dry, warm. Absent: rash Internal Medicine: Result - Labs CBC & Chem 7: 02/22/17 03:01 02/22/17 03:01 Labs: Short CBC 02/22/17 Range/Units 03:01 WBC 9.7 (4.3-11.1) K/mcL Hgb 11.1 L (11.5-15.4) g/dL Hct 33.2 L (35.3-44.9) % Plt Count 290 (140-400) K/mcL BMP 02/22/17 03:01 Sodium 137 Potassium 3.8 Chloride 101 Carbon Dioxide 27 BUN 15 Creatinine 1.11 Glucose 96 Calcium 9.2 - ABG Interpretation ABG results: PT/INR, D-dimer PT 20.8 Seconds (9.4-12.1) H 02/22/17 03:01 - VTE Reasons for not Prescribing Prophylaxis: Not indicated-Anticoagulated or INR therapeutic Consult Discharge Plan - Plan Referrals: Danya Houser CNP [Primary Care Provider] - 03/03/17 3:00 pm
[2017-02-22] MEDS ORDERED: *HR* Warfarin 5 MG TABLET PO SCH (21:47)
[2017-02-23] MEDS: Aspirin 81 MG TAB.CHEW PO SCH (08:01)
[2017-02-23] MEDS: Magnesium Oxide 400 MG TABLET PO SCH ×2 (08:02→20:48)
--- NOTE | 2017-02-23 09:08 | Cardiology Progress Note ---
Date of Encounter: 02/23/17 Time of Encounter: 09:03 Assessment and Plan (1) Bradycardia on ECG Current Visit: Yes Status: Acute - Bradycardia followed a fib with rvr after being given home meds [id number] , Coreg 25mg BID. Pulse down to the 30s, was given 1mg glucagon, 0.5mg atropine x 2. Pt responded appropriately. - on 02/21/17, pt received 30mg cardizem, 12.5mg coreg. - on 02/22/17, pt received 60 mg cardizem, 25mg coreg, then had the episode of bradycardia R=45 with atrial flutter. 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 Will consider pacemaker if further medical management is unsuccessful at managing HR. (2) Mitral regurgitation Current Visit: No Status: Chronic - Repeat echo showed mild-moderate MR; NICM with EF 45% (slightly improved from previous 35-40%) - Continue coumadin. Qualifiers: Cardiac valve disease etiology: etiology unspecified Qualified Code(s): I34.0 - Nonrheumatic mitral (valve) insufficiency (3) Atrial fibrillation with RVR Current Visit: No Status: Acute Hx of PAF. Presented with afib with RVR, while on cardizem gtt became bradycardiac with HR in the 30's. Anticoagulated on Coumadin, INR followed by ACMS; denies abnormal or unusual bleeding. Will consider restarting low dose cardizem today. Continue telemetry. Follow-up in the outpatient setting; will coordinate appt in 3-4 weeks. Discussion w patient/family: The assessment and plan as outlined above was discussed with the patient and/or family members who expressed understanding and agreement. All questions were answered. Thank you for involving us in the care of your patient. Please call with any questions. Subjective Principal diagnosis: Afib with RVR Interval history: Patient seen and examined. Yesterday evening 02/22 had an episode of bradycardia HR 45 with atrial flutter. Pt had received 60mg short acting cardizem, and coreg 25mg. On Wednesday 02/21, dose was 30mg cardizem and 12.5 mg coreg. Patient feeling good today. Incidentally had a nosebleed episode during my exam today. Objective Vital Signs, Last 4 Hours Temp Pulse Resp BP Pulse Ox 02/23/17 08:04 97 02/23/17 07:00 98.5 F 110 15 145/98 97 02/23/17 05:06 98.3 F 103 15 130/91 97 General: Conversant, No Apparent Distress HEENT: Atraumatic, Mucus Membranes Moist Neck: No JVD Cardiac: Other (a fib with rvr rate 110s) Lungs: Normal Breath Sounds, No Wheeze, Rales, Rhonchi Neuro: Alert and responsive, No focal deficits noted Abdomen: Soft, Non-Tender Skin: No rashes noted on visualized skin Musculoskeletal: No Chest Wall Tenderness Extremities: No Edema Results 02/22/17 03:01 02/22/17 03:01 - Imaging and Cardiology Echo: report reviewed - VTE Reasons for not Prescribing Prophylaxis: Not indicated-Anticoagulated or INR therapeutic Consult Discharge Plan - Plan Referrals: Danya Houser CNP [Primary Care Provider] - 03/03/17 3:00 pm
--- NOTE | 2017-02-23 10:14 | Internal Med Progress Note ---
<Jesus Dickerson - Last Filed: 02/23/17 17:34> Date of Encounter: 02/23/17 Time of Encounter: 09:35 - Assessment and plan (1) Bradycardia Current Visit: Yes Status: Resolved Assessment and plan: A fib with rvr, treated with diliazem and coreg. Patient was noted yesterday to be bradycardic. HR reported to be 45bpm. Cardiology consulted. 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 Consider pacemaker. (2) Atrial fibrillation Current Visit: Yes Status: Acute Assessment and plan: Hx of PAF. Presented with afib with RVR, two episodes of bradycardia with HR in the 30-40's. Seen by cardiology, appreciate their input and recommendations. continue Telemetry. Consider restarting low dose Cardizem.- Order placed by cardio to restart medication at midnight. Anticoagulated on Coumadin. Follow-up with outpatient cardiology in 3-4 weeks. Qualifiers: Atrial fibrillation type: paroxysmal Qualified Code(s): I48.0 - Paroxysmal atrial fibrillation (3) Mitral regurgitation Current Visit: Yes Status: Chronic Assessment and plan: Repeat echo showed mild-moderate MR; NICM with EF 45% (slightly improved from previous 35-40%) Continue coumadin. Qualifiers: Cardiac valve disease etiology: nonrheumatic Qualified Code(s): I34.0 - Nonrheumatic mitral (valve) insufficiency (4) UTI (urinary tract infection) Current Visit: Yes Status: Acute Assessment and plan: UTI, culture grew E. coli. Day 5 of ceftriaxone. May need discharge on PO Keflex. Qualifiers: Urinary tract infection type: acute cystitis Hematuria presence: without hematuria Qualified Code(s): N30.00 - Acute cystitis without hematuria (5) Anemia Current Visit: Yes Status: Acute Assessment and plan: She has normocytic anemia. Most likely chronic disease but review of prior H/H shows varies from 11-13. Monitoring. Qualifiers: Anemia type: other cause Other causes of anemia: chronic disease, other Qualified Code(s): D63.8 - Anemia in other chronic diseases classified elsewhere (6) HTN (hypertension) Current Visit: Yes Status: Chronic Assessment and plan: Slightly elevated this AM, continue to monitor and adjust medications as needed. Qualifiers: Hypertension type: essential hypertension Qualified Code(s): I10 - Essential (primary) hypertension (7) CKD (chronic kidney disease) stage 3, GFR 30-59 ml/min Current Visit: Yes Status: Chronic Assessment and plan: Monitor renal function. Creatinine lowest in years. (8) DVT prophylaxis Current Visit: Yes Status: Acute Assessment and plan: On coumadin. - Time Spent With Patient less than 15 minutes - Subjective Interval history: Patient seen and examined at bedside. Patient denies any acute pain; does note that her nose bleed this morning, but not currently. She states she can not feel her heart racing, though she is tired. - Constitutional Vitals: Temp Pulse Resp BP Pulse Ox 98.5 F 110 15 145/98 97 02/23/17 07:00 02/23/17 07:00 02/23/17 07:00 02/23/17 07:00 02/23/17 08:04 General appearance: Present: cooperative, A&O X 3, pleasant, answers questions appropriately - Head Head exam: Present: atraumatic, normocephalic - Eye Eye exam: Present: EOMI, conjuntiva pink - ENT ENT exam: Present: mucous membranes moist - Respiratory Respiratory exam: Present: decreased breath sounds, CTAB - Cardiovascular Cardiovascular exam: Present: tachycardia - GI/Abdominal GI/Abdominal exam: Present: normal bowel sounds, soft. Absent: tenderness - Extremities Exam Extremities exam: Present: warm. Absent: pedal edema, tenderness - Neurological Exam Neurological exam: Present: alert, oriented X3, no focal deficits - Skin Skin exam: Present: dry, warm. Absent: cyanosis, rash Internal Medicine: Result - Labs CBC & Chem 7: 02/22/17 03:01 02/22/17 03:01 - ABG Interpretation ABG results: PT/INR, D-dimer PT 20.8 Seconds (9.4-12.1) H 02/22/17 03:01 - VTE Reasons for not Prescribing Prophylaxis: Not indicated-Anticoagulated or INR therapeutic Consult Discharge Plan - Plan Referrals: Danya Houser CNP [Primary Care Provider] - 03/03/17 3:00 pm <Sumanth Mejia - Last Filed: 02/23/17 18:00> Date of Encounter: 02/23/17 - Assessment and plan (1) Atrial fibrillation Current Visit: Yes Status: Acute Qualifiers: Atrial fibrillation type: persistent Qualified Code(s): I48.1 - Persistent atrial fibrillation (2) Anemia Current Visit: Yes Status: Acute Qualifiers: Anemia type: other cause Other causes of anemia: chronic disease, other Qualified Code(s): D63.8 - Anemia in other chronic diseases classified elsewhere (3) UTI (urinary tract infection) Current Visit: Yes Status: Acute Qualifiers: Urinary tract infection type: acute cystitis Hematuria presence: without hematuria Qualified Code(s): N30.00 - Acute cystitis without hematuria (4) HTN (hypertension) Current Visit: Yes Status: Chronic Qualifiers: Hypertension type: essential hypertension Qualified Code(s): I10 - Essential (primary) hypertension (5) CKD (chronic kidney disease) stage 3, GFR 30-59 ml/min Current Visit: Yes Status: Chronic (6) Mitral regurgitation Current Visit: Yes Status: Chronic Qualifiers: Cardiac valve disease etiology: nonrheumatic Qualified Code(s): I34.0 - Nonrheumatic mitral (valve) insufficiency - Time Spent With Patient Greater than 30 min. - Constitutional Vitals: Temp Pulse Resp BP Pulse Ox 97.5 F L 108 18 147/97 95 02/23/17 16:14 02/23/17 16:14 02/23/17 16:14 02/23/17 16:14 02/23/17 16:14 Internal Medicine: Result - Labs CBC & Chem 7: 02/22/17 03:01 02/22/17 03:01 - ABG Interpretation ABG results: PT/INR, D-dimer PT 20.8 Seconds (9.4-12.1) H 02/22/17 03:01 - Attending Attestation I examined this patient and my medical decision-making was reviewed with the Resident Physician on 02/23/17. I agree with the documented findings, disposition and treatment plan as described except to the extent set forth below. Ms. Hauser is currently admitted for rapid atrial fib, bradycardia and UTI. She is high risk due to the potential for worsening cardiac issues. Ms. Hauser feels OK today. No new issues overnight. Heart rate has increased now that off meds. Exam Alert. Comfortable Heart irreg - tachy when up in chair Lungs clear I/P 1. A fib 2. Bradycardia Further diagnoses and plan as above.
[2017-02-23] MEDS: *HR* Warfarin 2.5 MG TABLET PO SCH (17:41)
[2017-02-24 04:06] LABS: INR 1.6; Prothrombin Time 17.7 Seconds (9.4-12.1)
[2017-02-24] MEDS: Magnesium Oxide 400 MG TABLET PO SCH ×2 (07:30→21:10)
[2017-02-24] MEDS: Aspirin 81 MG TAB.CHEW PO SCH (07:30)
[2017-02-24 09:30] LABS: Calcium 9.1 mg/dL (8.6-10.8); Potassium 3.8 mEq/L (3.5-4.5)
--- NOTE | 2017-02-24 09:42 | Internal Med Progress Note ---
<Jesus Dickerson - Last Filed: 02/24/17 14:18> Date of Encounter: 02/24/17 Time of Encounter: 09:30 - Assessment and plan (1) Atrial fibrillation Current Visit: Yes Status: Acute Assessment and plan: Hx of PAF. Presented with afib with RVR, two episodes of bradycardia with HR in the 30-45's. Restarted low dose Cardizem 30mg, tolerated well by patient, but HR remains elevated. Will attempt increasing Cardizem to 60mg. Seen by cardiology, appreciate their input and recommendations. Continue Telemetry. Anticoagulated on Coumadin. Qualifiers: Atrial fibrillation type: paroxysmal Qualified Code(s): I48.0 - Paroxysmal atrial fibrillation (2) Bradycardia Current Visit: Yes Status: Resolved Assessment and plan: A fib with rvr, treated with diltiazem and coreg. Patient two previous episodes of bradycardia. HR reported to be 30-45bpm. Cardiology consulted. 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 Consider pacemaker. Currently medically managing, will attempt increasing diltiazem. (3) Mitral regurgitation Current Visit: Yes Status: Chronic Assessment and plan: Repeat echo showed mild-moderate MR; NICM with EF 45% (slightly improved from previous 35-40%) Follow up as outpatient. Qualifiers: Cardiac valve disease etiology: nonrheumatic Qualified Code(s): I34.0 - Nonrheumatic mitral (valve) insufficiency (4) UTI (urinary tract infection) Current Visit: Yes Status: Acute Assessment and plan: UTI, culture grew E. coli. Day 6 of ceftriaxone. Will discuss length of course with attending. Qualifiers: Urinary tract infection type: acute cystitis Hematuria presence: without hematuria Qualified Code(s): N30.00 - Acute cystitis without hematuria (5) Anemia Current Visit: Yes Status: Acute Assessment and plan: She has normocytic anemia. Most likely chronic disease but review of prior H/H shows varies from 11-13. Monitoring. Qualifiers: Anemia type: other cause Other causes of anemia: chronic disease, other Qualified Code(s): D63.8 - Anemia in other chronic diseases classified elsewhere (6) HTN (hypertension) Current Visit: Yes Status: Chronic Assessment and plan: Elevated this AM. Cautious as we adjust medications with patient's multiple episodes of bradycardia & hypotension. Qualifiers: Hypertension type: essential hypertension Qualified Code(s): I10 - Essential (primary) hypertension (7) CKD (chronic kidney disease) stage 3, GFR 30-59 ml/min Current Visit: Yes Status: Chronic Assessment and plan: Monitor renal function. Creatinine improved from admission. (8) DVT prophylaxis Current Visit: Yes Status: Acute Assessment and plan: On coumadin. Goal INR of 2-3. INR today 1.6. - Time Spent With Patient less than 15 minutes - Subjective Interval history: Patient seen and examined sitting in chair, working with therapy. States she feels pretty good today. No acute pain. - Constitutional Vitals: Temp Pulse Resp BP Pulse Ox 97.6 F 100 15 146/109 97 02/24/17 07:00 02/24/17 07:00 02/24/17 07:00 02/24/17 07:00 02/24/17 08:00 General appearance: Present: cooperative, A&O X 3, pleasant, answers questions appropriately - Head Head exam: Present: atraumatic, normocephalic - Eye Eye exam: Present: EOMI, conjuntiva pink - ENT ENT exam: Present: mucous membranes moist - Neck Neck exam general surgery: Present: full ROM - Respiratory Respiratory exam: Present: CTAB - Cardiovascular Cardiovascular exam: Present: irregular rhythm - GI/Abdominal GI/Abdominal exam: Present: soft. Absent: firm, guarding - Extremities Exam Extremities exam: Absent: cyanotic, pedal edema, tenderness - Neurological Exam Neurological exam: Present: alert, oriented X3, no focal deficits - Psychiatric Psychiatric exam: Present: normal affect, normal mood - Skin Skin exam: Present: dry, intact, warm. Absent: cyanosis, rash Internal Medicine: Result - Labs CBC & Chem 7: 02/22/17 03:01 02/24/17 08:58 Labs: BMP 02/24/17 08:58 Sodium 134 L Potassium 3.8 Chloride 99 Carbon Dioxide 25 BUN 19 Creatinine 1.17 H Glucose 147 H Calcium 9.1 - ABG Interpretation ABG results: PT/INR, D-dimer PT 17.7 Seconds (9.4-12.1) H 02/24/17 03:10 - VTE Reasons for not Prescribing Prophylaxis: Not indicated-Anticoagulated or INR therapeutic Consult Discharge Plan - Plan Referrals: Danya Houser CNP [Primary Care Provider] - 03/03/17 3:00 pm <Sumanth Mejia - Last Filed: 02/24/17 15:37> Date of Encounter: 02/24/17 - Assessment and plan (1) Atrial fibrillation Current Visit: Yes Status: Acute Qualifiers: Atrial fibrillation type: persistent Qualified Code(s): I48.1 - Persistent atrial fibrillation (2) Anemia Current Visit: Yes Status: Acute Qualifiers: Anemia type: other cause Other causes of anemia: chronic disease, other Qualified Code(s): D63.8 - Anemia in other chronic diseases classified elsewhere (3) UTI (urinary tract infection) Current Visit: Yes Status: Acute Qualifiers: Urinary tract infection type: acute cystitis Hematuria presence: without hematuria Qualified Code(s): N30.00 - Acute cystitis without hematuria (4) HTN (hypertension) Current Visit: Yes Status: Chronic Qualifiers: Hypertension type: essential hypertension Qualified Code(s): I10 - Essential (primary) hypertension (5) CKD (chronic kidney disease) stage 3, GFR 30-59 ml/min Current Visit: Yes Status: Chronic (6) Mitral regurgitation Current Visit: Yes Status: Chronic Qualifiers: Cardiac valve disease etiology: nonrheumatic Qualified Code(s): I34.0 - Nonrheumatic mitral (valve) insufficiency - Time Spent With Patient Time for patient was 37min - Constitutional Vitals: Temp Pulse Resp BP Pulse Ox 97.6 F 100 15 146/109 97 02/24/17 07:00 02/24/17 07:00 02/24/17 07:00 02/24/17 07:00 02/24/17 08:00 Internal Medicine: Result - Labs CBC & Chem 7: 02/22/17 03:01 02/24/17 08:58 Labs: BMP 02/24/17 08:58 Sodium 134 L Potassium 3.8 Chloride 99 Carbon Dioxide 25 BUN 19 Creatinine 1.17 H Glucose 147 H Calcium 9.1 - ABG Interpretation ABG results: PT/INR, D-dimer PT 17.7 Seconds (9.4-12.1) H 02/24/17 03:10 - Attending Attestation I examined this patient and my medical decision-making was reviewed with the Resident Physician on 02/24/17. I agree with the documented findings, disposition and treatment plan as described except to the extent set forth below. Ms. Hauser is currently admitted for rapid atrial fibrillation and episodes of bradycardia. She remains high risk due to the potential of cardiac issues with medication changes. Ms. Hauser feels OK. Her heartrate was elevated this morning prior to meds given. No CP or SOB. Exam Alert. Comfortable Heart irreg - not tachy now Lungs clear I/P 1. A fib 2. Bradycardia Further diagnoses and plan as above.
--- NOTE | 2017-02-24 11:33 | Cardiology Progress Note ---
Date of Encounter: 02/24/17 Time of Encounter: 11:20 Assessment and Plan (1) Atrial fibrillation Current Visit: Yes Status: Acute Hx of PAF. Presented with afib with RVR, while on cardizem gtt became bradycardiac with HR in the 30's. 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 12 hour tele: avg FC=[id number] afib. Min=67, no pause. HR 80's-90's during exam. Increase short-acting cardizem to 60 mg TID. Betablocker discontinued on due to bradycardia. Anticoagulated on Coumadin, INR followed by [facility]; denies abnormal or unusual bleeding. . Qualifiers: Atrial fibrillation type: paroxysmal Qualified Code(s): I48.0 - Paroxysmal atrial fibrillation (2) Mitral regurgitation Current Visit: Yes Status: Chronic Mild-moderate MR per TTE. Appears euvolemic upon exam. Will continue to follow/monitor in the outpatient setting. Qualifiers: Cardiac valve disease etiology: nonrheumatic Qualified Code(s): I34.0 - Nonrheumatic mitral (valve) insufficiency (3) Systolic dysfunction Current Visit: Yes Status: Chronic Non-ischemic cardiomyopathy. EF improved, 45% compared to prior study (35-40%). Appears euvolemic upon exam. Continue CV medications including betablocker. No ACEi/ARB due to CKD. Discussion w patient/family: The assessment and plan as outlined above was discussed with the patient and/or family members who expressed understanding and agreement. All questions were answered. Thank you for involving us in the care of your patient. Please call with any questions. The patient was discussed and reviewed with Dr. Joseph; changes to be made accordingly. Subjective Principal diagnosis: Afib with RVR Interval history: Seen and examined. Sitting up in the bedside chair. HR 80's-90's afib noted per exam. Patient states she feels well today--no complaints including chest pain or discomfort, dyspnea, palpitations, syncope, or dizziness. Objective Vital Signs, Last 4 Hours Pulse Ox 02/24/17 08:00 97 General: Conversant, No Apparent Distress HEENT: Atraumatic, Normocephaly, Mucus Membranes Moist Cardiac: Other (irregularly irregular) Lungs: Normal Breath Sounds Neuro: Alert and responsive Abdomen: Soft Skin: No rashes noted on visualized skin Musculoskeletal: No Chest Wall Tenderness Extremities: No Edema, Normal Pulses Results 02/22/17 03:01 02/24/17 08:58 Lab Results 02/24/17 02/24/17 03:10 08:58 INR 1.6 Sodium 134 L Potassium 3.8 Chloride 99 Carbon Dioxide 25 BUN 19 Creatinine 1.17 H Glucose 147 H Calcium 9.1 Active Medications Albuterol/Ipratropium (Duoneb) 3 ml IH [id number] PRN; Protocol PRN Reason: Shortness Of Breath/Wheezing Stop: 08/20/17 22:34 Aspirin (Aspirin) 81 mg PO DAILY [facility] Stop: 08/21/17 09:01 Last Admin: 02/24/17 07:30 Dose: 81 mg Calcitriol (Rocaltrol) 0.25 mcg PO DAILY [facility] Stop: 08/21/17 09:01 Last Admin: 02/24/17 07:30 Dose: 0.25 mcg Diltiazem HCl (Cardizem) 60 mg PO Q8HR [facility]UNG Stop: 08/26/17 16:01 Ceftriaxone Sodium 1,000 mg/ (Dextrose) 100 mls @ 200 mls/hr IVPB Q24H KYUNG Stop: 08/21/17 12:01 Last Admin: 02/23/17 14:39 Dose: 200 mls/hr Magnesium Oxide (Mag-Ox) 400 mg PO BID KYUNG PRN Reason: Protocol Stop: 08/21/17 09:01 Last Admin: 02/24/17 07:30 Dose: 400 mg Naloxone HCl (Narcan) 0.4 mg IVP Q2MIN PRN PRN Reason: Opioid Reversal Stop: 08/20/17 21:46 Omeprazole (Prilosec) 20 mg PO DAILY KYUNG PRN Reason: Protocol Stop: 08/21/17 09:01 Last Admin: 02/24/17 07:30 Dose: 20 mg Ondansetron HCl (Zofran) 4 mg IVP Q8HR PRN PRN Reason: Nausea And Vomiting Stop: 08/20/17 21:46 Tramadol HCl (Ultram) 50 mg PO Q8H PRN PRN Reason: Pain Stop: 08/20/17 21:48 Last Admin: 02/19/17 09:30 Dose: 50 mg Warfarin Sodium (Coumadin Perpt) 1 each PO DAILY@1800 PRN PRN Reason: SEE COMMENTS Stop: 08/21/17 18:01 Warfarin Sodium (Coumadin) 5 mg PO 1800 ONE Stop: 02/24/17 18:01 - Imaging and Cardiology Echo: report reviewed Cardiac cath: report reviewed Other Results: 12 hour tele: avg [id number] afib. No significant pause. Frequent PVC. Min=68 - EKG Interpretation EKG results cardiology: personally reviewed - VTE Reasons for not Prescribing Prophylaxis: Not indicated-Anticoagulated or INR therapeutic Consult Discharge Plan - Plan Referrals: Danya Houser CNP [Primary Care Provider] - 03/03/17 3:00 pm
[2017-02-24] MEDS ORDERED: *HR* Warfarin 5 MG TABLET PO ONE (18:00)
[2017-02-25 05:02] LABS: Basophils # 0.1 K/mcL (0.0-0.2); Basophils % 0.6 %; Eosinophils # 0.2 K/mcL (0.0-0.6); Eosinophils % 2.4 %; Hematocrit 33.9 % (35.3-44.9); Hemoglobin 11.2 g/dL (11.5-15.4); Immature Granulocytes % 3.6 % (0-4); Lymphocytes # 1.7 K/mcL (0.6-4.6); Lymphocytes % 21.6 %; Mean Corpuscular Hemoglobin 30.5 pg (28.0-33.3); Mean Corpuscular Volume 92.4 fL (83.0-100.0); Mean Platelet Volume 9.2 fL (9.4-12.4); Monocytes # 0.5 K/mcL (0.0-1.3); Monocytes % 6.6 %; Neutrophils # 5.1 K/mcL (1.6-8.9); Platelet Count 304 K/mcL (140-400); Red Blood Count 3.67 M/mcL (3.82-4.97); Red Cell Distribution Width 12.9 % (11.5-14.5); Segmented Neutrophils % 65.2 %
[2017-02-25 05:05] LABS: INR 1.6; Prothrombin Time 17.1 Seconds (9.4-12.1)
[2017-02-25 05:19] LABS: Calcium 9.3 mg/dL (8.6-10.8); Potassium 4.2 mEq/L (3.5-4.5)
--- NOTE | 2017-02-25 08:14 | Cardiology Progress Note ---
Date of Encounter: 02/25/17 Time of Encounter: 08:14 Assessment and Plan (1) Bradycardia on ECG Current Visit: Yes Status: Acute - Concern for tachy-dylon syndrome. Bradycardia followed a fib with rvr after being given home meds [id number], Coreg 25mg BID. Pulse down to the 30s, was given 1mg glucagon, 0.5mg atropine x 2. Pt responded appropriately. - on 02/21/17, pt received 30mg cardizem, 12.5mg coreg. - on 02/22/17, pt received 60 mg cardizem, 25mg coreg, then had the episode of bradycardia R=45 with atrial flutter. - on 02/23/17, pt received 30mg cardizem daily; increased to 60mg TID on 02/24/17 Low 50, high 119 with average 76. During my exam, HR 90s to low 100. Appears relatively well-controlled. Pt has not noted any dizziness or lightheadedness. Will keep on short acting cardizem 60mg TID. At this time, cardiology will sign off. Followup with cardiology office set up. Please reconsult for any further problems. (2) Mitral regurgitation Current Visit: No Status: Chronic - Repeat echo showed mild-moderate MR; NICM with EF 45% (slightly improved from previous 35-40%) - Continue coumadin with goal INR 2-3. Qualifiers: Qualified Code(s): I34.0 - Nonrheumatic mitral (valve) insufficiency (3) Atrial fibrillation with RVR Current Visit: No Status: Acute Hx of PAF. Presented with afib with RVR, while on cardizem gtt became bradycardiac with HR in the 30's. Anticoagulated on Coumadin, INR followed by [facility]; denies abnormal or unusual bleeding. Continue telemetry. Continue cardizem 60mg TID. Follow-up in the outpatient setting; F/u appt in 3-4 weeks. Discussion w patient/family: The assessment and plan as outlined above was discussed with the patient and/or family members who expressed understanding and agreement. All questions were answered. Thank you for involving us in the care of your patient. Please call with any questions. Subjective Principal diagnosis: Afib with RVR Interval history: Patient seen and examined. Pt states she feels much better. Denies any chest pain or difficulty breathing. No acute events overnight. Objective Vital Signs, Last 4 Hours Temp Pulse Resp BP Pulse Ox 02/25/17 07:13 97.8 F 84 16 135/86 97 02/25/17 04:45 97.8 F 112 18 140/110 96 General: Conversant, No Apparent Distress HEENT: Atraumatic, Mucus Membranes Moist Neck: No JVD Cardiac: Other (A fib with rate 90s) Lungs: Normal Breath Sounds, No Wheeze, Rales, Rhonchi Neuro: Alert and responsive, No focal deficits noted Abdomen: Soft, Non-Tender Skin: No rashes noted on visualized skin Musculoskeletal: No Chest Wall Tenderness Extremities: No Edema Results 02/25/17 04:30 02/25/17 04:30 Lab Results 02/24/17 02/25/17 02/25/17 08:58 04:30 04:30 WBC 7.8 Hgb 11.2 L Hct 33.9 L Plt Count 304 INR 1.6 Sodium 134 L Potassium 3.8 Chloride 99 Carbon Dioxide 25 BUN 19 Creatinine 1.17 H Glucose 147 H Calcium 9.1 02/25/17 04:30 WBC Hgb Hct Plt Count INR Sodium 135 L Potassium 4.2 Chloride 99 Carbon Dioxide 29 BUN 24 H Creatinine 1.23 H Glucose 101 H Calcium 9.3 - VTE Reasons for not Prescribing Prophylaxis: Not indicated-Anticoagulated or INR therapeutic Consult Discharge Plan - Plan Additional Instructions: Will need follow up with [facility]madin [facility]. Follow up with outpatient Cardiology in 3-4 weeks. Follow up with Primary Care Physician (PCP) in the next 7-10 days or sooner if needed. Please return ER or PCP if you have new or worsening symptoms. Referrals: Danya Houser CNP [Primary Care Provider] - 03/03/17 3:00 pm Giorgi Joseph DO [Partnered Physician] - Prescriptions: Diltiazem [Cardizem] 60 mg PO Q8HR 30 Days
[2017-02-25] MEDS: Aspirin 81 MG TAB.CHEW PO SCH (08:29)
[2017-02-25] MEDS: Magnesium Oxide 400 MG TABLET PO SCH (08:30)
--- NOTE | 2017-02-25 11:24 | Discharge Summary ---
<Jesus Dickerson - Last Filed: 02/25/17 17:41> Date of Encounter: 02/25/17 Time of Encounter: 09:30 - Discharge Diagnosis (1) Atrial fibrillation Priority: Primary Status: Acute Qualifiers: Atrial fibrillation type: paroxysmal Qualified Code(s): I48.0 - Paroxysmal atrial fibrillation (2) Bradycardia Priority: Secondary Status: Resolved (3) Mitral regurgitation Priority: Secondary Status: Chronic Qualifiers: Cardiac valve disease etiology: nonrheumatic Qualified Code(s): I34.0 - Nonrheumatic mitral (valve) insufficiency (4) UTI (urinary tract infection) Priority: Secondary Status: Acute Qualifiers: Urinary tract infection type: acute cystitis Hematuria presence: without hematuria Qualified Code(s): N30.00 - Acute cystitis without hematuria (5) Anemia Priority: Secondary Status: Acute Qualifiers: Anemia type: other cause Other causes of anemia: chronic disease, other Qualified Code(s): D63.8 - Anemia in other chronic diseases classified elsewhere (6) HTN (hypertension) Priority: Secondary Status: Chronic Qualifiers: Hypertension type: essential hypertension Qualified Code(s): I10 - Essential (primary) hypertension (7) CKD (chronic kidney disease) stage 3, GFR 30-59 ml/min Priority: Secondary Status: Chronic - Discharge Medications Prescriptions: Diltiazem [Cardizem] 60 mg PO Q8HR 30 Days Home Medications: Ergocalciferol (VITAMIN D2) [Vitamin D2 (50,000 UNIT)] 50,000 unit PO FR [History] Meclizine [Antivert] 12.5 mg PO DAILY PRN 03/17/16 [History] Omeprazole [PriLOSEC] 20 mg PO DAILY 03/17/16 [History] Albuterol Sulfate [Albuterol Inhaler] 2 puff IH Q4H PRN 04/18/16 [History] Aspirin 81 mg PO DAILY 04/18/16 [History] Calcitriol [Rocaltrol] 0.25 mcg PO DAILY 04/30/16 [History] Warfarin [Coumadin] 5 mg PO ANNE 04/30/16 [History] Magnesium Oxide [Magnesium] 400 mg PO BID #60 tablet 09/15/16 [Rx] Tramadol HCl [Ultram] 50 mg PO Q8H PRN 02/18/17 [History] Warfarin [Coumadin] 2.5 mg PO MOTUWETHFRSA 02/18/17 [History] Diltiazem [Cardizem] 60 mg PO Q8HR 30 Days 02/25/17 [Rx] Allergies/Adverse Reactions: Allergies No Known Allergies Allergy (Verified 08/15/16 12:03) Date of admission: 02/20/17 08:29 Primary care physician: Danya Houser CNP Consults: 02/20/17 08:58 Consult to Payable Processor [CONS] Routine Reason for SW Consult: PT/OT recommending SNF Discharging clinician: Sumanth Mejia Anticipated date of discharge: 02/25/17 - Patient Status Disposition: Home Health Service Condition: Good Functional capacity at discharge: uses cane/walker Overall status at discharge: patient is progressing back to baseline - Discharge Instructions Instructions: Diltiazem (By mouth), Atrial Fibrillation (DC), Urinary Tract Infection in Women (DC), Chronic Hypertension (DC), Anemia (GEN) Follow Up With: Danya Houser CNP [Primary Care Provider] - 03/03/17 3:00 pm Casie Reddy CNP [Partnered Physician] - 03/06/17 9:45 am ([facility]) Giorgi Joseph DO [Partnered Physician] - (cardiology will call with appointment. If you do not receive call in 1-2 days with appointment. please call them) Forms: ED Satisfaction Letter Additional Instructions: Will need follow up with [facility]in [facility]. Follow up with outpatient Cardiology in 3-4 weeks. Follow up with Primary Care Physician (PCP) in the next 7-10 days or sooner if needed. Please return ER or PCP if you have new or worsening symptoms. - Diet and Activity Activity: as per physical therapy, increase activity as tolerated Diet: advance to your usual diet Interval History: Patient denies any events overnight and states she feel well this AM. Hospital course: Ms. Hauser is a 77 year old female with history of Atrial fibrillation that presented to the ED for chest pain and palpitations that had been worse the week prior to admission. A fib previously converted to sinus rhythm while inpatient approx 1 month ago. On coumadin, Coreg, and cardizem for A fib. Patient was started on cardizem drip, however experienced episode of hypotension and bradycardia. Cardiology consulted, she was switched to short acting cardizem with coreg. Coreg was discontinued after second episode of bradycardia. Patient's A fib remains stable on cardizem only, average HR in the 77 without significant episodes of bradycardia. In addition patient found to have UTI, culture positive for E. coli. She underwent 7 days of treatment with ceftriaxone. No or GI complaints upon discharge. - Time Spent with Patient Total time spent providing and/or coordinating discharge services: Greater than 30 minutes (40 mins) - Constitutional Vitals: Temp Pulse Resp BP Pulse Ox 97.5 F L 59 16 100/60 96 02/25/17 11:16 02/25/17 11:16 02/25/17 11:16 02/25/17 11:16 02/25/17 11:16 General appearance: Present: cooperative, A&O X 3, pleasant, answers questions appropriately - Head Head exam: Present: atraumatic, normocephalic - Eye Eye exam: Present: EOMI - ENT ENT exam: Present: mucous membranes moist - Neck Neck exam general surgery: Present: full ROM, supple - Respiratory Respiratory exam: Present: decreased breath sounds, CTAB - Cardiovascular Cardiovascular exam: Present: irregular rhythm - GI/Abdominal GI/Abdominal exam: Present: soft. Absent: guarding, tenderness - Extremities Exam Extremities exam: Present: warm. Absent: cyanotic, pedal edema, tenderness - Neurological Exam Neurological exam: Present: alert, no focal deficits - Psychiatric Psychiatric exam: Present: normal affect, normal mood - Skin Skin exam: Present: dry, intact, normal color. Absent: cyanosis, rash - VTE Reasons for not Prescribing Prophylaxis: Not indicated-Anticoagulated or INR therapeutic <Sumanth Mejia - Last Filed: 02/25/17 17:55> Date of Encounter: 02/25/17 - Discharge Diagnosis (1) Atrial fibrillation Priority: Primary Status: Acute Qualifiers: Atrial fibrillation type: persistent Qualified Code(s): I48.1 - Persistent atrial fibrillation (2) Anemia Status: Acute Qualifiers: Anemia type: other cause Other causes of anemia: chronic disease, other Qualified Code(s): D63.8 - Anemia in other chronic diseases classified elsewhere (3) UTI (urinary tract infection) Status: Acute Qualifiers: Urinary tract infection type: acute cystitis Hematuria presence: without hematuria Qualified Code(s): N30.00 - Acute cystitis without hematuria (4) HTN (hypertension) Status: Chronic Qualifiers: Hypertension type: essential hypertension Qualified Code(s): I10 - Essential (primary) hypertension (5) CKD (chronic kidney disease) stage 3, GFR 30-59 ml/min Status: Chronic (6) Mitral regurgitation Status: Chronic Qualifiers: Cardiac valve disease etiology: nonrheumatic Qualified Code(s): I34.0 - Nonrheumatic mitral (valve) insufficiency Date of admission: 02/20/17 08:29 Primary care physician: Danya Houser CNP Consults: 02/20/17 08:58 Consult to Payable Processor [CONS] Routine Reason for SW Consult: PT/OT recommending SNF Hospital course: Ms. Hauser is a 77 year old female - Time Spent with Patient Total time spent providing and/or coordinating discharge services: 40min Greater than 30 minutes - Constitutional Vitals: Temp Pulse Resp BP Pulse Ox 97.5 F L 59 16 100/60 96 02/25/17 11:16 02/25/17 11:16 02/25/17 11:16 02/25/17 11:16 02/25/17 11:16 - Attending Attestation I examined this patient and my medical decision-making was reviewed with the Resident Physician on 02/25/17. I agree with the documented findings, disposition and treatment plan as described except to the extent set forth below. Ms. Hauser is feeling OK today. Heart rate has been OK on current med. Cleared for discharge today. She is afebrile with stable vitals. Exam Alert. Comfortable Heart irreg - not tachy Lungs clear Plan D/C today.
--- NOTE | 2017-02-25 11:33 | Physician Discharge Referral ---
<Jesus Dickerson - Last Filed: 02/25/17 11:31> Home Health/Hosp Referral Info Transfer to: Home Health Provider in Charge Post Discharge: PCP - Diagnosis (1) Atrial fibrillation Priority: Primary Status: Acute (2) Bradycardia Status: Resolved (3) Mitral regurgitation Status: Chronic (4) UTI (urinary tract infection) Status: Acute (5) Anemia Status: Acute (6) HTN (hypertension) Status: Chronic (7) CKD (chronic kidney disease) stage 3, GFR 30-59 ml/min Status: Chronic - Respiratory Orders None Smoking Cessation: Smoking cessation has been advised. For more information, call the [place] Tobacco Quit Line at 1-728-JVLN-NOW. - Diet/Nutrition Diet/Nutrition Orders: Cardiac - Activity Activity Orders: Up ad jere, Ambulate (may need handheld assistance for balance.) - Services Needed Following services are medically necessary services: Nursing, Physical Therapy, Occupational Therapy - Transfer Medications Prescriptions: Diltiazem [Cardizem] 60 mg PO Q8HR 30 Days Home Medications: Ergocalciferol (VITAMIN D2) [Vitamin D2 (50,000 UNIT)] 50,000 unit PO FR [History] Meclizine [Antivert] 12.5 mg PO DAILY PRN 03/17/16 [History] Omeprazole [PriLOSEC] 20 mg PO DAILY 03/17/16 [History] Albuterol Sulfate [Albuterol Inhaler] 2 puff IH Q4H PRN 04/18/16 [History] Aspirin 81 mg PO DAILY 04/18/16 [History] Calcitriol [Rocaltrol] 0.25 mcg PO DAILY 04/30/16 [History] Warfarin [Coumadin] 5 mg PO ANNE 04/30/16 [History] Magnesium Oxide [Magnesium] 400 mg PO BID #60 tablet 09/15/16 [Rx] Tramadol HCl [Ultram] 50 mg PO Q8H PRN 02/18/17 [History] Warfarin [Coumadin] 2.5 mg PO MOTUWETHFRSA 02/18/17 [History] Diltiazem [Cardizem] 60 mg PO Q8HR 30 Days 02/25/17 [Rx] Allergies/Adverse Reactions: Allergies No Known Allergies Allergy (Verified 08/15/16 12:03) Certification: Further, I certify that my clinical findings support that this patient is homebound (i.e. absences from home require considerable and taxing effort and are for medical reasons or moravian services or infrequently or short duration when for other reasons) because: Homebound Reason: Patient requires assistance of a person or device to safely leave home, Severity of cardiac or pulmonary status limits activity tolerance Attestation: My signature below is to certify that this patient is under my care and that I, or nurse practitioner, or a physician's rehab assistant working with me, has a face-to -face encounter with this patient. <Sumanth Mejia - Last Filed: 02/25/17 14:44> - Diagnosis (1) Atrial fibrillation Status: Acute (2) Anemia Status: Acute (3) UTI (urinary tract infection) Status: Acute (4) HTN (hypertension) Status: Chronic (5) CKD (chronic kidney disease) stage 3, GFR 30-59 ml/min Status: Chronic (6) Mitral regurgitation Status: Chronic - Respiratory Orders Smoking Cessation: Smoking cessation has been advised. For more information, call the [place] Tobacco Quit Line at 9-387-VAQU-NOW. Certification: Further, I certify that my clinical findings support that this patient is homebound (i.e. absences from home require considerable and taxing effort and are for medical reasons or moravian services or infrequently or short duration when for other reasons) because: Attestation: My signature below is to certify that this patient is under my care and that I, or nurse practitioner, or a physician's rehab assistant working with me, has a face-to -face encounter with this patient.
[2017-02-25 15:30] VITALS: BP 150/106
[2017-02-25] MEDS ORDERED: *HR* Warfarin 2.5 MG TABLET PO ONE (18:00)
== END 2017-02-25 16:06 | disposition home health service (06) | DRG 309 ==
LOC: 2NENU 16:41 → EMEROO 16:41 → 2NENU 23:15
PROVIDERS: ADMIT Internal Medicine; ATTEND Internal Medicine

== ENCOUNTER 2020-05-05 13:13 | Observation (INO) ==
[2020-05-05] MEDS ORDERED: Isovue-370 500 ML BOTTLE IVP ONE ×2 (13:50→13:52)
[2020-05-05 14:31] LABS: Bacteria,Urine Few per hpf (None-Few); Bilirubin,Urine Negative (Negative); Blood,Urine Trace (Negative); Clarity,Urine Clear (Clear); Color,Urine Colorless (Yellow); Glucose,Urine (UA) Normal (Normal); Ketones,Urine Negative (Negative); Leukocyte Esterase,Urine Moderate (Negative); Mucus,Urine Few per lpf (None-Few); Nitrite,Urine Negative (Negative); Protein,Urine Negative (Neg-Trace); Specific Gravity,Urine 1.005 (1.010-1.025); Urobilinogen,Urine Normal (Normal); WBC,Urine 15-30 per hpf (0-3)
[2020-05-05 14:36] LABS: INR 1.4
[2020-05-05 14:37] LABS: Basophils % 0.4 %; Eosinophils # 0.2 K/mcL (0.0-0.6); Eosinophils % 2.9 %; Hematocrit 39.6 % (35.3-44.9); Hemoglobin 13.2 g/dL (11.5-15.4); Immature Granulocytes % 0.6 % (0-4); Lymphocytes # 1.4 K/mcL (0.6-4.6); Lymphocytes % 18.9 %; Mean Corpuscular HGB Conc 33.3 g/dL (31.6-35.5); Mean Corpuscular Hemoglobin 30.8 pg (28.0-33.3); Mean Corpuscular Volume 92.5 fL (83.0-100.0); Mean Platelet Volume 9.3 fL (9.4-12.4); Monocytes # 0.7 K/mcL (0.0-1.3); Monocytes % 10.3 %; Neutrophils # 4.8 K/mcL (1.6-8.9); Platelet Count 244 K/mcL (140-400); Red Blood Count 4.28 M/mcL (3.82-4.97); Red Cell Distribution Width 12.3 % (11.5-14.5); Segmented Neutrophils % 66.9 %; White Blood Count 7.2 K/mcL (4.3-11.1)
[2020-05-05 14:38] LABS: Activated Partial Thrombo Time 34.8 Seconds (26.0-36.0)
[2020-05-05] MEDS ORDERED: Gadolinium Contrast Agent (WT Based) IV PRN (15:48)
[2020-05-05 16:39] LABS: Albumin 3.9 g/dL (3.5-5.7); Albumin/Globulin Ratio 1.2 (1.1-2.2); Bilirubin,Direct 0.1 mg/dL (0.0-0.2); Bilirubin,Indirect 0.6 mg/dL (0.0-1.0); Bilirubin,Total 0.7 mg/dL (0.3-1.0); Calcium 9.2 mg/dL (8.6-10.3); Globulin 3.3 g/dL (2.4-3.5); Potassium 4.2 mEq/L (3.5-5.1); Total Protein 7.2 g/dL (6.4-8.9)
[2020-05-05] MEDS ORDERED: cefTRIAXone 1,000 MG in 0.9 % Sodium Chloride Mini Bag 100 ML IVPB ONE (19:17)
[2020-05-05] MEDS ORDERED: Naloxone 0.4 MG/ML INJ IVP PRN (20:32)
[2020-05-05] MEDS ORDERED: Acetaminophen 325 MG TABLET PO PRN (23:01)
[2020-05-05] MEDS ORDERED: 0.9 % Sodium Chloride 1,000 ML IVC ONE (23:41)
[2020-05-06] MEDS: Levothyroxine 25 MCG TABLET PO SCH (07:04)
[2020-05-06] MEDS: Metoprolol XL (24 HR) Succ 50 MG TAB.ER.24H PO SCH (10:32)
[2020-05-06] MEDS: cefTRIAXone 1,000 MG in Water for inj. (sterile) 10 ML IVP SCH (10:32)
[2020-05-06] MEDS: Apixaban 5 MG TABLET PO SCH ×2 (10:32→22:35)
[2020-05-06] MEDS ORDERED: Perflutren Lipid Microsphere 1.3 ML in 0.9 % Sodium Chloride 8.7 ML IVP PRN (14:22)
[2020-05-06] MEDS ORDERED: Ipratropium/Albuterol Neb 3 ML IH PRN (14:28)
[2020-05-06] MEDS: lisinopriL 20 MG TABLET PO SCH (15:45)
[2020-05-06] MEDS: Magnesium Oxide 400 MG TABLET PO SCH (22:35)
[2020-05-07] MEDS: Levothyroxine 25 MCG TABLET PO SCH (06:25)
[2020-05-07] MEDS: lisinopriL 20 MG TABLET PO SCH (09:35)
[2020-05-07] MEDS: Magnesium Oxide 400 MG TABLET PO SCH (09:35)
[2020-05-07] MEDS: Metoprolol XL (24 HR) Succ 50 MG TAB.ER.24H PO SCH (09:35)
[2020-05-07] MEDS: Apixaban 5 MG TABLET PO SCH (09:35)
[2020-05-07] MEDS: cefTRIAXone 1,000 MG in Water for inj. (sterile) 10 ML IVP SCH (09:39)
[2020-05-07] MEDS ORDERED: *HR* Metoprolol 5 MG/5 ML VIAL IVP ONE (10:36)
[2020-05-07 15:33] VITALS: BP 133/80
== END 2020-05-07 18:18 | disposition home or self-care (01) ==
LOC: 3BNU 13:13 → EMEROOARM 13:13 → SUATTDRO 20:11 → 3BNU 20:42
PROVIDERS: ADMIT Family Medicine; ATTEND Internal Medicine

== ENCOUNTER 2021-07-31 14:20 | Observation (INO) ==
[2021-07-31 16:29] LABS: Basophils % 0.5 %; Eosinophils # 0.3 K/mcL (0.0-0.6); Eosinophils % 3.5 %; Hematocrit 34.4 % (35.3-44.9); Hemoglobin 11.1 g/dL (11.5-15.4); Immature Granulocytes % 0.3 % (0-4); Lymphocytes # 2.5 K/mcL (0.6-4.6); Lymphocytes % 33.5 %; Mean Corpuscular HGB Conc 32.3 g/dL (31.6-35.5); Mean Corpuscular Hemoglobin 29.8 pg (28.0-33.3); Mean Corpuscular Volume 92.5 fL (83.0-100.0); Mean Platelet Volume 9.5 fL (9.4-12.4); Monocytes # 0.7 K/mcL (0.0-1.3); Monocytes % 9.4 %; Neutrophils # 3.9 K/mcL (1.6-8.9); Platelet Count 213 K/mcL (140-400); Red Blood Count 3.72 M/mcL (3.82-4.97); Red Cell Distribution Width 12.7 % (11.5-14.5); Segmented Neutrophils % 52.8 %; White Blood Count 7.4 K/mcL (4.3-11.1)
[2021-07-31 16:40] LABS: INR 1.2; Prothrombin Time 13.4 Seconds (9.4-12.1)
[2021-07-31 16:43] LABS: Activated Partial Thrombo Time 34.7 Seconds (26.0-36.0)
[2021-07-31 17:05] LABS: Alanine Aminotransferase 5 Units/L (7-52); Albumin/Globulin Ratio 1.4 (1.1-2.2); Alkaline Phosphatase 80 Units/L (34-104); Aspartate Amino Transferase 16 Units/L (13-39); BUN/Creatinine Ratio 13 (6-26); Bilirubin,Direct 0.1 mg/dL (0.0-0.2); Bilirubin,Indirect 0.3 mg/dL (0.0-1.0); Bilirubin,Total 0.4 mg/dL (0.3-1.0); Blood Urea Nitrogen 20 mg/dL (8-23); Calcium 9.4 mg/dL (8.6-10.3); Carbon Dioxide 31 mEq/L (23-29); Chloride 105 mEq/L (98-107); Globulin 2.9 g/dL (2.4-3.5); Glucose 91 mg/dL (70-105); Osmolality,Calculated 294 (280-300); Potassium 3.6 mEq/L (3.5-5.1); Sodium 141 mEq/L (136-145); Total Protein 6.9 g/dL (6.4-8.9); Troponin I < 0.03 ng/mL (< 0.04); eGFR For African Americans 40 (> 60); eGFR For Non-African Americans 33 (> 60)
[2021-07-31] MEDS ORDERED: Pantoprazole 40 MG VIAL IVP ONE (18:27)
[2021-07-31] MEDS ORDERED: Ondansetron 4 MG/2 ML VIAL IVP PRN (20:35)
[2021-07-31] MEDS ORDERED: Acetaminophen 325 MG TABLET PO PRN (20:35)
[2021-07-31] MEDS ORDERED: Naloxone 0.4 MG/ML INJ IVP PRN (20:35)
[2021-07-31] MEDS ORDERED: Melatonin 3 MG TABLET PO PRN (20:35)
[2021-07-31] MEDS ORDERED: 0.9 % Sodium Chloride 1,000 ML IVC SCH (22:00)
[2021-08-01 08:11] LABS: Hematocrit 36.1 % (35.3-44.9); Hemoglobin 11.4 g/dL (11.5-15.4); Mean Corpuscular HGB Conc 31.6 g/dL (31.6-35.5); Mean Corpuscular Volume 91.9 fL (83.0-100.0); Mean Platelet Volume 9.8 fL (9.4-12.4); Platelet Count 191 K/mcL (140-400); Red Blood Count 3.93 M/mcL (3.82-4.97); Red Cell Distribution Width 12.5 % (11.5-14.5); White Blood Count 5.2 K/mcL (4.3-11.1)
[2021-08-01 08:20] LABS: Calcium 9.5 mg/dL (8.6-10.3); Potassium 3.6 mEq/L (3.5-5.1)
[2021-08-01 11:30] LABS: Phosphorous 2.4 mg/dL (2.7-4.5)
[2021-08-01] MEDS: lisinopriL 20 MG TABLET PO SCH (12:33)
[2021-08-01] MEDS: Metoprolol XL (24 HR) Succ 50 MG TAB.ER.24H PO SCH ×2 (12:34→20:14)
[2021-08-01] MEDS: Levothyroxine 25 MCG TABLET PO SCH (12:39)
[2021-08-01] MEDS: Pantoprazole 40 MG VIAL IVP SCH ×2 (12:39→17:51)
[2021-08-01] MEDS: Magnesium Oxide 400 MG TABLET PO SCH ×2 (12:42→20:14)
[2021-08-01] MEDS ORDERED: Hydrocortisone Rectal 2.5% CRM 28 GM TUBE RC PRN (15:18)
[2021-08-02 02:57] LABS: Basophils % 0.4 %; Eosinophils # 0.2 K/mcL (0.0-0.6); Eosinophils % 2.2 %; Hemoglobin 11.8 g/dL (11.5-15.4); Immature Granulocytes % 0.4 % (0-4); Lymphocytes # 1.8 K/mcL (0.6-4.6); Lymphocytes % 25.9 %; Mean Corpuscular HGB Conc 32.8 g/dL (31.6-35.5); Mean Corpuscular Hemoglobin 30.1 pg (28.0-33.3); Mean Corpuscular Volume 91.8 fL (83.0-100.0); Mean Platelet Volume 9.6 fL (9.4-12.4); Monocytes # 0.6 K/mcL (0.0-1.3); Neutrophils # 4.3 K/mcL (1.6-8.9); Platelet Count 200 K/mcL (140-400); Red Blood Count 3.92 M/mcL (3.82-4.97); Red Cell Distribution Width 12.6 % (11.5-14.5); Segmented Neutrophils % 62.1 %; White Blood Count 6.9 K/mcL (4.3-11.1)
[2021-08-02 03:12] LABS: Calcium 9.9 mg/dL (8.6-10.3); Magnesium 2.2 mg/dL (1.6-2.6); Phosphorous 3.1 mg/dL (2.7-4.5)
[2021-08-02] MEDS ORDERED: *HR* LORazepam 2 MG/ML VIAL IVP ONE (03:39)
[2021-08-02] MEDS: Pantoprazole 40 MG VIAL IVP SCH (05:52)
[2021-08-02] MEDS: Magnesium Oxide 400 MG TABLET PO SCH (09:01)
[2021-08-02] MEDS: Metoprolol XL (24 HR) Succ 50 MG TAB.ER.24H PO SCH ×2 (09:01→09:09)
[2021-08-02] MEDS: lisinopriL 20 MG TABLET PO SCH (09:01)
[2021-08-02 11:32] VITALS: BP 135/86; PULSE 65; TEMP 97.5; O2SAT 97
== END 2021-08-02 16:04 | disposition home health service (06) ==
LOC: EMEROOARM 14:20 → 3ANU 14:20
PROVIDERS: ADMIT Internal Medicine; ATTEND Internal Medicine

== ENCOUNTER 2022-06-13 23:24 | Inpatient (IN) ==
[2022-06-14] MEDS ORDERED: Ondansetron 4 MG/2 ML VIAL IVP PRN ×2 (03:33→14:54)
[2022-06-14] MEDS ORDERED: Naloxone 0.4 MG/ML INJ IVP PRN ×2 (03:33→14:54)
[2022-06-14] MEDS ORDERED: *HR* Promethazine 25 MG/ML VIAL IM PRN ×2 (03:33→14:54)
[2022-06-14] MEDS ORDERED: Melatonin 3 MG TABLET PO PRN ×2 (03:33→14:54)
[2022-06-14] MEDS ORDERED: Acetaminophen 325 MG TABLET PO PRN ×2 (03:33→14:54)
[2022-06-14 05:41] LABS: Basophils % 0.3 %; Eosinophils % 0.1 %; Hematocrit 35.5 % (35.3-44.9); Hemoglobin 11.6 g/dL (11.5-15.4); Immature Granulocytes % 0.5 % (0-4); Lymphocytes # 1.1 K/mcL (0.6-4.6); Lymphocytes % 10.8 %; Mean Corpuscular HGB Conc 32.7 g/dL (31.6-35.5); Mean Corpuscular Hemoglobin 30.2 pg (28.0-33.3); Mean Corpuscular Volume 92.4 fL (83.0-100.0); Mean Platelet Volume 9.4 fL (9.4-12.4); Monocytes # 0.5 K/mcL (0.0-1.3); Monocytes % 5.2 %; Neutrophils # 8.7 K/mcL (1.6-8.9); Platelet Count 170 K/mcL (140-400); Red Blood Count 3.84 M/mcL (3.82-4.97); Red Cell Distribution Width 12.3 % (11.5-14.5); Segmented Neutrophils % 83.1 %; White Blood Count 10.4 K/mcL (4.3-11.1)
[2022-06-14 05:47] LABS: INR 1.1; Prothrombin Time 12.7 Seconds (9.4-12.1)
[2022-06-14 06:04] LABS: Calcium 9.3 mg/dL (8.6-10.3); Potassium 3.5 mEq/L (3.5-5.1)
[2022-06-14] MEDS ORDERED: Furosemide 20 MG/2 ML VIAL IVP SCH (09:00)
[2022-06-14] MEDS ORDERED: Levothyroxine 25 MCG TABLET PO SCH (09:00)
[2022-06-14] MEDS ORDERED: Metoprolol XL (24 HR) Succ 50 MG TAB.ER.24H PO SCH (09:00)
[2022-06-14] MEDS ORDERED: *HR* Propofol 200 MG/20 ML VIAL IVP ONE (10:45)
[2022-06-14] MEDS ORDERED: CeFAZolin Syr 2,000MG/20 ML 2,000 MG/20 ML SYRINGE IVPB ONE (11:03)
[2022-06-14] MEDS ORDERED: *HR* HYDROmorphone PF 0.5 MG/0.5 ML SYRINGE IVP PRN ×2 (11:21→14:54)
[2022-06-14] MEDS ORDERED: *HR* FentaNYL (PF) 100 MCG/2 ML VIAL ONE (11:29)
[2022-06-14] MEDS ORDERED: Lidocaine -MPF 2% 5 ML VIAL ONE (11:30)
[2022-06-14] MEDS ORDERED: *HR* Rocuronium Bromide 50 MG/5 ML VIAL ONE (11:30)
[2022-06-14] MEDS ORDERED: Lidocaine HCL 4 ML Topical Solution (Laryng-O-Jet Kit Sterile Pak) TP ONE (11:30)
[2022-06-14] MEDS ORDERED: Ondansetron 4 MG/2 ML VIAL ONE (12:07)
[2022-06-14] MEDS ORDERED: Sugammadex Sodium 200 MG/2 ML VIAL IV ONE (12:33)
[2022-06-14] MEDS: CeFAZolin 2 GM/120 ML BAG IVPB SCH (21:40)
[2022-06-14] MEDS: Furosemide 20 MG/2 ML VIAL IVP SCH (21:55)
[2022-06-14] MEDS: Metoprolol XL (24 HR) Succ 50 MG TAB.ER.24H PO SCH (22:07)
[2022-06-15] MEDS: CeFAZolin 2 GM/120 ML BAG IVPB SCH (05:57)
[2022-06-15] MEDS: Levothyroxine 25 MCG TABLET PO SCH (05:57)
[2022-06-15] MEDS: Furosemide 20 MG/2 ML VIAL IVP SCH (09:55)
[2022-06-15] MEDS: Metoprolol XL (24 HR) Succ 50 MG TAB.ER.24H PO SCH ×2 (09:55→20:09)
[2022-06-15] MEDS: Aspirin Enteric Coated 325 MG Tablet PO SCH (09:55)
[2022-06-15] MEDS ORDERED: Ergocalciferol (VIT D2) 50,000 UNIT (1.25MG) CAP PO SCH (11:30)
[2022-06-15] MEDS ORDERED: Ringers Solution, Lactated 500 ML IVC ONE (21:30)
[2022-06-16] MEDS: Levothyroxine 25 MCG TABLET PO SCH (05:01)
[2022-06-16] MEDS: Loratadine 10 MG TABLET PO SCH (08:49)
[2022-06-16] MEDS: Aspirin Enteric Coated 325 MG Tablet PO SCH (08:49)
[2022-06-16] MEDS: Metoprolol XL (24 HR) Succ 50 MG TAB.ER.24H PO SCH ×2 (08:49→21:39)
[2022-06-16] MEDS ORDERED: Furosemide 20 MG TABLET PO SCH (09:00)
[2022-06-16 14:53] LABS: Basophils % 0.2 %; Eosinophils # 0.1 K/mcL (0.0-0.6); Eosinophils % 0.5 %; Hematocrit 21.6 % (35.3-44.9); Immature Granulocytes % 1.1 % (0-4); Lymphocytes # 2.6 K/mcL (0.6-4.6); Lymphocytes % 23.5 %; Mean Corpuscular HGB Conc 32.9 g/dL (31.6-35.5); Mean Corpuscular Hemoglobin 30.7 pg (28.0-33.3); Mean Corpuscular Volume 93.5 fL (83.0-100.0); Mean Platelet Volume 9.9 fL (9.4-12.4); Monocytes # 1.2 K/mcL (0.0-1.3); Monocytes % 10.6 %; Neutrophils # 7.1 K/mcL (1.6-8.9); Nucleated Red Blood Cells 0.2 /100 WBC (0); Platelet Count 160 K/mcL (140-400); Red Blood Count 2.31 M/mcL (3.82-4.97); Red Cell Distribution Width 12.9 % (11.5-14.5); Segmented Neutrophils % 64.1 %; White Blood Count 11.1 K/mcL (4.3-11.1)
[2022-06-16 14:54] LABS: Hemoglobin 7.1 g/dL (11.5-15.4)
[2022-06-16 15:14] LABS: Calcium 8.1 mg/dL (8.6-10.3); Potassium 3.7 mEq/L (3.5-5.1)
[2022-06-17] MEDS: Levothyroxine 25 MCG TABLET PO SCH (06:20)
[2022-06-17] MEDS: Aspirin Enteric Coated 325 MG Tablet PO SCH (08:58)
[2022-06-17] MEDS: Metoprolol XL (24 HR) Succ 50 MG TAB.ER.24H PO SCH ×2 (08:58→21:34)
[2022-06-17] MEDS: Loratadine 10 MG TABLET PO SCH (08:58)
[2022-06-17 09:40] LABS: Basophils # 0.1 K/mcL (0.0-0.2); Basophils % 0.5 %; Eosinophils # 0.1 K/mcL (0.0-0.6); Eosinophils % 0.8 %; Hematocrit 25.1 % (35.3-44.9); Hemoglobin 8.2 g/dL (11.5-15.4); Immature Granulocytes % 1.2 % (0-4); Lymphocytes # 1.4 K/mcL (0.6-4.6); Mean Corpuscular HGB Conc 32.7 g/dL (31.6-35.5); Mean Corpuscular Hemoglobin 31.1 pg (28.0-33.3); Mean Corpuscular Volume 95.1 fL (83.0-100.0); Mean Platelet Volume 10.2 fL (9.4-12.4); Monocytes # 0.8 K/mcL (0.0-1.3); Monocytes % 7.8 %; Neutrophils # 7.6 K/mcL (1.6-8.9); Platelet Count 161 K/mcL (140-400); Red Blood Count 2.64 M/mcL (3.82-4.97); Red Cell Distribution Width 12.5 % (11.5-14.5); Segmented Neutrophils % 75.7 %
[2022-06-17 09:48] LABS: Calcium 8.6 mg/dL (8.6-10.3); Magnesium 2.1 mg/dL (1.6-2.6); Phosphorous 2.8 mg/dL (2.7-4.5); Potassium 3.6 mEq/L (3.5-5.1)
[2022-06-18 05:37] LABS: Hematocrit 22.7 % (35.3-44.9); Hemoglobin 7.3 g/dL (11.5-15.4)
[2022-06-18 05:56] LABS: Bilirubin,Urine Negative (Negative); Blood,Urine Negative (Negative); Clarity,Urine Clear (Clear); Color,Urine Light-Yellow (Yellow); Glucose,Urine (UA) Normal (Normal); Hyaline Casts,Urine Few per lpf (None Seen); Ketones,Urine Negative (Negative); Leukocyte Esterase,Urine Negative (Negative); Nitrite,Urine Negative (Negative); Protein,Urine 50 mg/dL (Neg-Trace); RBC,Urine 0-3 per hpf (0-3); Specific Gravity,Urine 1.023 (1.010-1.025); Squamous Epithelial Cell,Urine Few per hpf (None-Few); Urobilinogen,Urine Normal (Normal); WBC,Urine 0-3 per hpf (0-3)
[2022-06-18 06:05] LABS: Calcium 8.4 mg/dL (8.6-10.3); Magnesium 2.3 mg/dL (1.6-2.6); Phosphorous 2.4 mg/dL (2.7-4.5); Potassium 3.7 mEq/L (3.5-5.1)
[2022-06-18] MEDS: Levothyroxine 25 MCG TABLET PO SCH (06:07)
[2022-06-18] MEDS: Aspirin Enteric Coated 325 MG Tablet PO SCH (08:38)
[2022-06-18] MEDS: Metoprolol XL (24 HR) Succ 50 MG TAB.ER.24H PO SCH ×2 (08:38→20:13)
[2022-06-18] MEDS: Loratadine 10 MG TABLET PO SCH (08:38)
[2022-06-19] MEDS: Levothyroxine 25 MCG TABLET PO SCH (05:21)
[2022-06-19 06:12] LABS: Hematocrit 22.1 % (35.3-44.9); Hemoglobin 7.1 g/dL (11.5-15.4); Mean Corpuscular HGB Conc 32.1 g/dL (31.6-35.5); Mean Corpuscular Hemoglobin 30.7 pg (28.0-33.3); Mean Corpuscular Volume 95.7 fL (83.0-100.0); Mean Platelet Volume 9.6 fL (9.4-12.4); Platelet Count 177 K/mcL (140-400); Red Blood Count 2.31 M/mcL (3.82-4.97); Red Cell Distribution Width 12.8 % (11.5-14.5); White Blood Count 8.4 K/mcL (4.3-11.1)
[2022-06-19 06:30] LABS: Calcium 8.4 mg/dL (8.6-10.3); Potassium 3.4 mEq/L (3.5-5.1)
[2022-06-19] MEDS: Loratadine 10 MG TABLET PO SCH (10:18)
[2022-06-19] MEDS: Aspirin Enteric Coated 325 MG Tablet PO SCH (10:18)
[2022-06-19] MEDS: Metoprolol XL (24 HR) Succ 50 MG TAB.ER.24H PO SCH ×2 (10:19→21:30)
[2022-06-19 16:06] LABS: Hematocrit 23.3 % (35.3-44.9); Hemoglobin 7.6 g/dL (11.5-15.4)
[2022-06-19 16:32] LABS: % Iron Saturation 14 % (15-50); Iron 34 mcg/dL (50-170); Transferrin 169 mg/dL (203-362)
[2022-06-19 16:33] LABS: Ferritin 60 ng/mL (10-120)
[2022-06-19 16:37] LABS: Folate 10.7 ng/mL (3.0-16.0)
[2022-06-20 05:02] LABS: Hematocrit 22.9 % (35.3-44.9); Hemoglobin 7.3 g/dL (11.5-15.4); Mean Corpuscular HGB Conc 31.9 g/dL (31.6-35.5); Mean Corpuscular Hemoglobin 30.4 pg (28.0-33.3); Mean Corpuscular Volume 95.4 fL (83.0-100.0); Mean Platelet Volume 9.6 fL (9.4-12.4); Platelet Count 215 K/mcL (140-400); Red Cell Distribution Width 13.1 % (11.5-14.5); White Blood Count 8.9 K/mcL (4.3-11.1)
[2022-06-20 05:11] LABS: Calcium 8.4 mg/dL (8.6-10.3); Potassium 4.2 mEq/L (3.5-5.1)
[2022-06-20] MEDS: Levothyroxine 25 MCG TABLET PO SCH (05:28)
[2022-06-20] MEDS: Loratadine 10 MG TABLET PO SCH (08:15)
[2022-06-20] MEDS: Aspirin Enteric Coated 325 MG Tablet PO SCH (08:15)
[2022-06-20] MEDS: Metoprolol XL (24 HR) Succ 50 MG TAB.ER.24H PO SCH (08:16)
[2022-06-21 04:18] LABS: Hematocrit 22.2 % (35.3-44.9); Hemoglobin 7.1 g/dL (11.5-15.4); Mean Corpuscular Hemoglobin 30.5 pg (28.0-33.3); Mean Corpuscular Volume 95.3 fL (83.0-100.0); Mean Platelet Volume 9.3 fL (9.4-12.4); Platelet Count 232 K/mcL (140-400); Red Blood Count 2.33 M/mcL (3.82-4.97); Red Cell Distribution Width 13.4 % (11.5-14.5); White Blood Count 8.8 K/mcL (4.3-11.1)
[2022-06-21 04:37] LABS: Calcium 8.7 mg/dL (8.6-10.3)
[2022-06-21] MEDS: Levothyroxine 25 MCG TABLET PO SCH (04:59)
[2022-06-21 05:53] LABS: Influenza A PCR Negative (Negative); Influenza B PCR Negative (Negative); Resp. Syncytial Virus PCR Negative (Negative)
[2022-06-21 05:55] LABS: SARS-CoV-2 by PCR (In House) Negative (Negative)
[2022-06-21] MEDS: Aspirin Enteric Coated 325 MG Tablet PO SCH (08:24)
[2022-06-21] MEDS: Loratadine 10 MG TABLET PO SCH (08:25)
[2022-06-21] MEDS ORDERED: Cyanocobalamin (B-12) 1,000 MCG TABLET PO SCH (09:00)
[2022-06-21] MEDS ORDERED: 0.9 % Sodium Chloride 250 ML ONE (11:45)
[2022-06-21 11:52] VITALS: TEMP 98.4
[2022-06-21 12:11] VITALS: BP 110/71; PULSE 94; O2SAT 92
== END 2022-06-21 15:40 | DRG 480 ==
LOC: 4WAOSI → SUATTDRO 06-14 03:07
PROVIDERS: ADMIT Internal Medicine; ATTEND Internal Medicine